=== PATIENT | female | born 1960 | race Caucasian/White ===

== ENCOUNTER → 2017-01-05 | Outpatient (CLI) | payer BC ==
[~2017-01-05] MED LIST: ACET-1256 PO; ALBU1AER9 PO; AMLO-110 PO; ASPI81TA28 PO; AZITTAB PO; BENZ100C84 PO; CHERATUSSIN AC PO; CHOL1CAP57 PO; CYAN100T6 PO; FLUO20CA37 PO; FLX10 PO; HYDR-5688 PO; IBUP-1050 PO; LISI-526 PO; MULT-506 PO; OMEG10007 PO; PSEUCAP67 PO; SUMA50TA15 PO
[2017-01-05 16:49] LABS: URINE APPEARANCE CLEAR (CLEAR); URINE BILIRUBIN NEG (NEG); URINE COLOR YELLOW; URINE NITRITE NEG (NEG); URINE SPECIFIC GRAVITY 1.012 (1.000-1.030); UROBILINOGEN NEG (NEG)
[2017-01-05 17:02] LABS: MANUAL MICROSCOPIC REQUIRED? NO; REVIEW REQ? NO
== END | disposition home or self-care (01) ==
LOC: C.LAB1850 15:33
PROVIDERS: ATTEND Obstetrics & Gynecology
DX: R31.29 Other microscopic hematuria (principal)

== ENCOUNTER 2017-01-15 17:37 | Emergency (ER) | payer BC ==
[~2017-01-15] VITALS: Ht 154.9 cm; Wt 63.3 kg
[~2017-01-15 17:37] MED LIST changes: -ACET-1256 PO; -LISI-526 PO
[2017-01-15 17:41] VITALS: TEMP 37.4; Ht 154.9 cm; Wt 63.3 kg
--- NOTE | 2017-01-15 18:00 | EMERGENCY ROOM VISIT NOTE ---
History Report prepared by Santos: Shree Maya Under the Supervision of: Dr. Kishan Bond M.D. First contact with patient: 17:57 Chief Complaint: HEADACHE Stated Complaint: HEADACHE,THROAT HURTS History of Present Illness The patient is a 56 year old female who presents to the Emergency Room with complaints of an intermittent headache beginning three weeks prior to arrival. She currently rates her discomfort as a 9/10 in severity. The patient associates a sore throat, jaw pain, neck pain, cough, fever, and chills with today's symptoms. She states her symptoms have worsened over the past three days. The patient notes she has experienced headaches in the past but not like her symptoms today. 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 Review of Systems See HPI for pertinent positives & negatives. A total of 10 systems reviewed and were otherwise negative. Past Medical & Surgical Medical Problems: (1) Acute Pancreatitis (2) Cystic Kidney Disease, Unspecified (3) Depressive Disorder Nec (4) Diverticulosis Colon (W/O Ment Of Hemorrhage) (5) Esophageal Reflux (6) Hypertension Nos Family History Diabetes mellitus FHx: heart disease Hypertension Social History Smoking Status: Never Smoker Alcohol Use: none Marital Status: Housing Status: lives with family Occupation Status: employed Current/Historical Medications Scheduled Amlodipine (Norvasc), 5 MG PO DAILY Aspirin (Aspirin Ec), 81 MG PO QAM Cholecalciferol (Vitamin D3), 1,000 UNITS PO QAM Cyanocobalamin (Vitamin B12 100 Mcg), 100 MCG PO QAM Fish Oil (Jackson-3), 2 TAB PO QAM Fluoxetine Hcl (Prozac), 40 MG PO HS Ibuprofen (Advil), 200-600 MG PO Q4H Lisinopril (Prinivil), 30 MG PO DAILY Scheduled PRN Acetaminophen (Tylenol), 500 MG PO DIRECTED PRN for Pain Hydrocodone/Acetaminophen 5MG/325MG ([place] 5MG/325MG), 1 TABLET PO Q4H PRN for RN Sumatriptan Succinate (Imitrex), 50 MG PO PRN PRN for Headache Allergies Coded Allergies: Codeine (Verified Allergy, Mild, STOMACH PAIN, 01/15/17) Statins (Verified Allergy, Mild, TIRED, WHOLE BODY ACHES, 01/15/17) Clarithromycin (Verified Allergy, Unknown, METAL TASTE IN MOUTH, 01/15/17) Doxycycline (Verified Allergy, Unknown, UNKNOWN, 01/15/17) Sulfa Antibiotics (Verified Adverse Reaction, Intermediate, GI UPSET, 01/15) Physical Exam Vital Signs Date Time Temp Pulse Resp B/P Pulse Ox O2 Delivery O2 Flow Rate FiO2 01/15/17 19:55 104 16 158/101 96 01/15/17 19:12 100 16 174/104 94 Room Air 01/15/17 17:41 37.4 119 20 178/103 95 Room Air Physical Exam CONSTITUTIONAL: Mild distress. Upper respiratory congestion. HEENT: No icterus, moist mucous membranes. TMs normal. No meningismus. NECK: No meningismus, trachea is midline. CARDIOVASCULAR: Regular rate, normal perfusion RESPIRATORY: Unlabored breathing. Clear to auscultation. GASTROINTESTINAL: Non-tender GENITOURINARY: No flank tenderness MUSCULOSKELETAL: Full range of motion NEUROLOGIC: No acute gross focal deficits. PSYCHIATRIC: Normal affect SKIN: Normal for ethnicity. Medical Decision & Procedures ER Provider Diagnostic Interpretation: CT results as stated below per my review and radiologist interpretation. SINUS CT CT DOSE: HISTORY: URI, severe ALEJO TECHNIQUE: Multiaxial CT images of the paranasal sinuses were performed and reformatted in the coronal plane without the use of contrast. COMPARISON: None. FINDINGS: There is a hypoplastic right frontal sinus. The frontal sinuses, ethmoid air cells, sphenoid sinuses, and bilateral maxillary antra are clear. The mastoid air cells are clear. The bilateral ostiomeatal units are patent. Mild left nasal septal deviation. No fluid levels within the paranasal sinuses. Small amount of bubbly secretions at the nasopharynx. The orbits are unremarkable. IMPRESSION: The paranasal sinuses and mastoid air cells are clear. Small amount of bubbly secretions at the nasopharynx. Electronically signed by: Russel Kaiser M.D. 01/15/2017 6:[address] CT DOSE: HISTORY: Severe headache. TECHNIQUE: Multiaxial CT images of the head were performed without the use of intravenous contrast. Automated exposure control was utilized for this study. Comparison: Head CT 02/28/2012. Findings: The paranasal sinuses and mastoid air cells are clear. The calvarium and skull base are intact. The ventricles and sulci are within normal limits. There is no mass, hematoma, midline shift, or acute infarct. Mild periventricular matter hypodensity is nonspecific but favors microvascular ischemic change. This remains unchanged compared to the prior study. Impression: No significant change compared to the prior study. No acute intracranial abnormality. Electronically signed by: Russel Kaiser M.D. 01/15/2017 6:49 PM Laboratory Results 01/15/17 18:19 Red Blood Count 4.71, Mean Corpuscular Volume 85.8, Mean Corpuscular Hemoglobin 28.9, Mean Corpuscular Hemoglobin Concent 33.7, Mean Platelet Volume 8.8, Neutrophils (%) (Auto) 87.4, Lymphocytes (%) (Auto) 6.2, Monocytes (%) (Auto) 5.6, Eosinophils (%) (Auto) 0.2, Basophils (%) (Auto) 0.2, Neutrophils # (Auto) 10.83, Lymphocytes # (Auto) 0.77, Monocytes # (Auto) 0.70, Eosinophils # (Auto) 0.02, Basophils # (Auto) 0.02 01/15/17 18:19 Test 01/15/17 18:19 01/15/17 18:20 White Blood Count 12.39 K/uL (4.8-10.8) Red Blood Count 4.71 M/uL (4.2-5.4) Hemoglobin 13.6 g/dL (12.0-16.0) Hematocrit 40.4 % (37-47) Mean Corpuscular Volume 85.8 fL (80-100) Mean Corpuscular Hemoglobin 28.9 pg (25-34) Mean Corpuscular Hemoglobin Concent 33.7 g/dl (32-36) Platelet Count 239 K/uL (130-400) Mean Platelet Volume 8.8 fL (7.4-10.4) Neutrophils (%) (Auto) 87.4 % Lymphocytes (%) (Auto) 6.2 % Monocytes (%) (Auto) 5.6 % Eosinophils (%) (Auto) 0.2 % Basophils (%) (Auto) 0.2 % Neutrophils # (Auto) 10.83 K/uL (1.4-6.5) Lymphocytes # (Auto) 0.77 K/uL (1.2-3.4) Monocytes # (Auto) 0.70 K/uL (0.11-0.59) Eosinophils # (Auto) 0.02 K/uL (0-0.5) Basophils # (Auto) 0.02 K/uL (0-0.2) RDW Standard Deviation 41.9 fL (36.4-46.3) RDW Coefficient of Variation 13.3 % (11.5-14.5) Immature Granulocyte % (Auto) 0.4 % Immature Granulocyte # (Auto) 0.05 K/uL (0.00-0.02) Anion Gap 12.0 mmol/L (3-11) Est Creatinine Clear Calc Drug Dose 54.7 ml/min Estimated GFR () 74.4 Estimated GFR (Non- 64.2 BUN/Creatinine Ratio 15.2 (10-20) Calcium Level 8.9 mg/dl (8.5-10.1) Total Bilirubin 0.4 mg/dl (0.2-1) Aspartate Amino Transf (AST/SGOT) 20 U/L (15-37) Alanine Aminotransferase (ALT/SGPT) 39 U/L (12-78) Alkaline Phosphatase 60 U/L (45-117) Total Protein 7.4 gm/dl (6.4-8.2) Albumin 3.5 gm/dl (3.4-5.0) Globulin 3.9 gm/dl (2.5-4.0) Albumin/Globulin Ratio 0.9 (0.9-2) Influenza Type A Antigen Neg for Influ A (NEG) Influenza Type B Antigen Neg for Influ B (NEG) Labs reviewed by ED physician. Medications Administered Medications (Trade) Dose Ordered Sig/Mauro Route Start Time Stop Time Status Last Admin Dose Admin Acetaminophen (Tylenol Tab) 1,000 mg NOW STAT PO 01/15/17 18:06 01/15/17 18:10 DC 01/15/17 18:28 1,000 MG Ibuprofen (Advil Tab) 400 mg NOW STAT PO 01/15/17 18:06 01/15/17 18:10 DC 01/15/17 18:27 400 MG Pseudoephedrine HCl (Sudafed Tab) 60 mg NOW STAT PO 01/15/17 18:06 01/15/17 18:10 DC 01/15/17 18:27 60 MG Oxymetazoline HCl (Afrin 0.05% Nasal [place]) 2 sprays NOW ONCE NA 01/15/17 18:15 01/15/17 18:17 DC 01/15/17 18:28 2 SPRAYS Diphenhydramine HCl 25 mg 25 mg NOW STAT IV 01/15/17 18:54 01/15/17 18:55 DC 01/15/17 19:10 25 MG Promethazine HCl/ Sodium Chloride (Phenergan Inj/ Nss 50ml) 51 ml @ 204 mls/hr NOW STAT IV 01/15/17 18:54 01/15/17 19:08 DC 01/15/17 19:10 204 MLS/HR ED Course 180: Past medical records reviewed. The patient was evaluated in room B6. A complete history and physical examination was performed. 180: Ordered Sudafed Tab 60 mg PO, Advil Tab 400 mg PO, Tylenol Tab 1,000 mg PO. 1814: Ordered Oxymetazoline HCl 2 sprays NA. 1850: Reevaluated the patient at this time, and she is experiencing continued subjective pain without objective findings. She would like something stronger for her discomfort. 1853: Ordered Promethazine HCl 25 mg/Sodium Chloride 51 ml @ 204 mls/hr IV, Benadryl Inj 25 mg IV. 5: Upon reexamination the patient is doing well. I discussed results and treatment plan with the patient. She verbalizes agreement and understanding. The patient is ready for discharge. Medical Decision Differential diagnoses include but are not limited to; upper respiratory infection, secondary bacterial sinusitis, intracranial bleed. 56-year-old presented to the emergency department with her for evaluation of upper respiratory symptoms as well as gradual onset of moderate to severe headache without focal neurologic complaints. Given Tylenol, Motrin and Phenergan Benadryl for persistent pain. CT examination labs negative. Patient advised upper respiratory symptoms and asked to leave 7-10 days before and initiating [id number] prescription for amoxicillin. She understands take Tylenol Motrin every 6 hours as needed for pain and return for any worsening worrisome symptoms. [place] Drug Monitoring Program Search Results: patient reviewed within database, see additional documentation Drug Monitoring Findings: The patient had two prescriptions for benzodiazepines noted over the past six months. Impression Primary Impression: Sinusitis Scribe Attestation The scribe's documentation has been prepared under my direction and personally reviewed by me in its entirety. I confirm that the note above accurately reflects all work, treatment, procedures, and medical decision making performed by me. Departure Information Dispostion Home / Self-Care Referrals Lawrence Ly M.D. (PCP) Forms HOME CARE DOCUMENTATION FORM, IMPORTANT VISIT INFORMATION Patient Instructions ED URI Viral, My [facility], Sinusitis Acute Additional Instructions For fevers, aches or pains: Motrin 600mg & Tylenol 650mg every 6 hours For congestion: Pseudoephedrine and Afrin Nasal MIST. Wait 10 days, if symptoms don't start to improve, take: Rx: Amoxicillin
[2017-01-15] MEDS ORDERED: IBUPROFEN 200 MG TAB PO STA (18:06)
[2017-01-15] MEDS ORDERED: PSEUDOEPHEDRINE HCL 30 MG TAB PO STA (18:06)
[2017-01-15] MEDS ORDERED: ACETAMINOPHEN 500 MG TAB PO STA (18:06)
[2017-01-15] MEDS ORDERED: OXYMETAZOLINE HCL 0.05% NA SPR 15 ML BTL ONE (18:15)
[2017-01-15] MEDS ORDERED: LISI-526 PO (18:20)
[2017-01-15] MEDS ORDERED: ACET-1256 PO (18:20)
[2017-01-15 18:31] LABS: BASO % 0.2 %; BASO ABS # 0.02 K/uL (0-0.2); COMPLETE YES; EOS % 0.2 %; HEMATOCRIT 40.4 % (37-47); IG% 0.4 %; LYMPH % 6.2 %; LYMPH ABS # 0.77 K/uL (1.2-3.4); MEAN CELL VOLUME 85.8 fL (80-100); MEAN CORPUSCULAR HEMOGLOBIN 28.9 pg (25-34); MEAN CORPUSCULAR HGB CONC 33.7 g/dl (32-36); MEAN PLATELET VOLUME 8.8 fL (7.4-10.4); MONO % 5.6 %; NEUT % 87.4 %; PLATELET COUNT 239 K/uL (130-400); RED BLOOD COUNT 4.71 M/uL (4.2-5.4); WHITE BLOOD COUNT 12.39 K/uL (4.8-10.8)
[2017-01-15 18:48] LABS: BUN/CREATININE RATIO 15.2 (10-20); CALCIUM 8.9 mg/dl (8.5-10.1); CREATININE 0.99 mg/dl (0.60-1.20); POTASSIUM 3.5 mmol/L (3.5-5.1)
--- NOTE | 2017-01-15 18:50 | DIAGNOSTIC IMAGING REPORT ---
HEAD CT NONCONTRAST CT DOSE: HISTORY: Severe headache. TECHNIQUE: Multiaxial CT images of the head were performed without the use of intravenous contrast. Automated exposure control was utilized for this study. Comparison: Head CT 02/28/2012. Findings: The paranasal sinuses and mastoid air cells are clear. The calvarium and skull base are intact. The ventricles and sulci are within normal limits. There is no mass, hematoma, midline shift, or acute infarct. Mild periventricular matter hypodensity is nonspecific but favors microvascular ischemic change. This remains unchanged compared to the prior study. Impression: No significant change compared to the prior study. No acute intracranial abnormality. Electronically signed by: Russel Kaiser M.D. 01/15/2017 6:49 PM Dictated Date/Time: 01/15/2017 6:46 PM
[2017-01-15 18:51] LABS: ALB/GLOB RATIO 0.9 (0.9-2)
--- NOTE | 2017-01-15 18:53 | DIAGNOSTIC IMAGING REPORT ---
SINUS CT CT DOSE: HISTORY: URI, severe ALEJO TECHNIQUE: Multiaxial CT images of the paranasal sinuses were performed and reformatted in the coronal plane without the use of contrast. COMPARISON: None. FINDINGS: There is a hypoplastic right frontal sinus. The frontal sinuses, ethmoid air cells, sphenoid sinuses, and bilateral maxillary antra are clear. The mastoid air cells are clear. The bilateral ostiomeatal units are patent. Mild left nasal septal deviation. No fluid levels within the paranasal sinuses. Small amount of bubbly secretions at the nasopharynx. The orbits are unremarkable. IMPRESSION: The paranasal sinuses and mastoid air cells are clear. Small amount of bubbly secretions at the nasopharynx. Electronically signed by: Russel Kaiser M.D. 01/15/2017 6:52 PM Dictated Date/Time: 01/15/2017 6:49 PM
[2017-01-15] MEDS ORDERED: PROMETHAZINE HCL INJ 25 MG in SODIUM CHLORIDE 0.9% 50ML 50 ML IV STA (18:54)
[2017-01-15] MEDS ORDERED: DiphenhydrAMINE HCL 50 MG/ML VIAL IV STA (18:54)
[2017-01-15 19:55] VITALS: BP 158/101; PULSE 104; O2SAT 96
== END 2017-01-15 19:55 | disposition home or self-care (01) ==
LOC: C.EDB 17:38
DX: J32.9 Chronic sinusitis, unspecified (principal); F32.9 Major depressive disorder, single episode, unspecified; K21.9 Gastro-esophageal reflux disease without esophagitis; I10 Essential (primary) hypertension; Q61.9 Cystic kidney disease, unspecified; Z83.3 Family history of diabetes mellitus; Z82.49 Family history of ischemic heart disease and other diseases of the circulatory system

== ENCOUNTER → 2017-04-11 | Outpatient (CLI) | payer BC ==
[~2017-04-11] MED LIST changes: +ACET-1256 PO; -ALBU1AER9 PO; -AZITTAB PO; -BENZ100C84 PO; -CHERATUSSIN AC PO; -FLX10 PO; +LISI-526 PO; -MULT-506 PO; -PSEUCAP67 PO
--- NOTE | 2017-04-11 16:34 | MAMMOGRAPHY REPORT ---
BILATERAL DIGITAL SCREENING MAMMOGRAM TOMOSYNTHESIS WITH CAD: 04/11/2017 CLINICAL HISTORY: Routine screening examination. TECHNIQUE: Breast tomosynthesis in addition to standard 2D mammography was performed. Current study was also evaluated with a Computer Aided Detection (CAD) system. COMPARISON: Comparison is made to exams dated: 05/23/2014 mammogram, 04/17/2013 mammogram, 03/25/2011 mammogram, 03/06/2010 mammogram - [facility], 03/05/2009, and 02/05/2008. BREAST COMPOSITION: There are scattered areas of fibroglandular density in both breasts. FINDINGS: There are stable intramammary lymph nodes in the right upper outer quadrant. No new suspi cious mass, architectural distortion or cluster of microcalcifications is seen. IMPRESSION: ACR BI-RADS CATEGORY 1: NEGATIVE There is no mammographic evidence of malignancy. A 1 year screening mammogram is recommended. The p atient will receive written notification of the results. Approximately 10% of breast cancers are not detected with mammography. A negative mammographic repor t should not delay biopsy if a clinically suggestive mass is present. Brandi Ambriz M.D. ay/:04/11/2017 15:57:34 Automation Analyst: Rola NGUYEN(Delilah)(Robyn), [facility] letter sent: Normal 1/2 BI-RADS Code: ACR BI-RADS Category 1: Negative
== END | disposition home or self-care (01) ==
LOC: C.MAMM 14:55
PROVIDERS: ATTEND Internal Medicine
DX: Z12.31 Encounter for screening mammogram for malignant neoplasm of breast (principal)

== ENCOUNTER → 2017-05-05 | Outpatient (CLI) | payer BC ==
[2017-05-05 18:21] LABS: URINE APPEARANCE CLEAR (CLEAR); URINE BILIRUBIN NEG (NEG); URINE COLOR YELLOW; URINE EPITHELIAL CELL AUTO 0-5 /lpf (0-5); URINE NITRITE NEG (NEG); URINE PH 6.5 (4.5-7.5); URINE SPECIFIC GRAVITY 1.012 (1.000-1.030); UROBILINOGEN NEG (NEG)
[2017-05-05 18:22] LABS: MANUAL MICROSCOPIC REQUIRED? NO; REVIEW REQ? NO
== END | disposition home or self-care (01) ==
LOC: C.LABSPEC 17:51
PROVIDERS: ATTEND Physician Assistant
DX: R35.0 Frequency of micturition (principal); Z87.42 Personal history of other diseases of the female genital tract

== ENCOUNTER → 2017-05-05 | Outpatient (CLI) | payer BC | END | disposition home or self-care (01) | LOC: C.PAPS 09:41 | PROVIDERS: ATTEND Physician Assistant | DX: Z01.419 Encounter for gynecological examination (general) (routine) without abnormal findings (principal) ==

== ENCOUNTER 2017-12-11 11:34 | Emergency (ER) | payer BC, OTHER ==
[~2017-12-11] VITALS: Ht 154.9 cm; Wt 62.0 kg
[2017-12-11 11:45] VITALS: Ht 154.9 cm; Wt 62.0 kg
[2017-12-11] MEDS ORDERED: OSELTAMIVIR PHOSPHATE 75 MG CAP PO STA (12:05)
[2017-12-11] MEDS ORDERED: PROCHLORPERAZINE 5 MG/ML 2 ML VIAL IV STA (12:05)
[2017-12-11] MEDS ORDERED: SODIUM CHLORIDE 0.9% 500ML 500 ML IV STA (12:05)
[2017-12-11] MEDS ORDERED: DiphenhydrAMINE HCL 50 MG/ML VIAL IV STA (12:05)
[2017-12-11] MEDS ORDERED: KETOROLAC TROMETHAMINE 30 MG/ML VIAL IV STA (12:05)
--- NOTE | 2017-12-11 12:09 | EMERGENCY ROOM VISIT NOTE ---
History Report prepared by Bhavinibronny: Cristofer Yusuf Under the Supervision of: Dr. Tarik Land M.D. First contact with patient: 12:00 Chief Complaint: HEADACHE Stated Complaint: SEVERE HEADACHE,DIZZINESS,EAR PAIN History of Present Illness The patient is a 57 year old female who presents to the Emergency Room with complaints of persistent fever AUTHOR. She notes severe pain behind both ears. She notes a headache, fevers, dizziness, and a cough. She currently rates her pain a 10/10 in severity. She denies neck pain or abdominal pain. She denies having a headache with similar symptoms in the past. The patient has not received the flu shot this season. She notes that she has taken Tylenol last night with no relief. Per , she has taken two Pedialyte this morning. Source of History: patient, spouse/significant other Onset: AUTHOR Position: other (global ) Symptom Intensity: 10/10 Quality: other (fever) Timing: other (persistent) Associated Symptoms: + headache, + cough, + neck pain, No abdominal pain Note: She notes dizziness. Review of Systems See HPI for pertinent positives & negatives. A total of 10 systems reviewed and were otherwise negative. Past Medical & Surgical Medical Problems: (1) Acute Pancreatitis (2) Cystic Kidney Disease, Unspecified (3) Depressive Disorder Nec (4) Diverticulosis Colon (W/O Ment Of Hemorrhage) (5) Esophageal Reflux (6) Hypertension Nos Family History Diabetes mellitus FHx: heart disease Hypertension Social History Smoking Status: Never Smoker Smokeless Tobacco Use: No Alcohol Use: none Drug Use: none Marital Status: Housing Status: lives with family Occupation Status: employed Current/Historical Medications Scheduled Cyanocobalamin (Vitamin B12 100 Mcg), 100 MCG PO QAM Fluoxetine Hcl (Prozac), 40 MG PO HS Lisinopril (Prinivil), 30 MG PO DAILY Oseltamivir Phosphate (Tamiflu), 75 MG PO BID Scheduled PRN Sumatriptan Succinate (Imitrex), 50 MG PO PRN PRN for Headache Allergies Coded Allergies: Codeine (Verified Allergy, Mild, STOMACH PAIN, 12/11/17) Statins (Verified Allergy, Mild, TIRED, WHOLE BODY ACHES, 12/11/17) Clarithromycin (Verified Allergy, Unknown, METAL TASTE IN MOUTH, 12/11/17) Doxycycline (Verified Allergy, Unknown, UNKNOWN, 12/11/17) Sulfa Antibiotics (Verified Adverse Reaction, Intermediate, GI UPSET, 12/11) Physical Exam Vital Signs Date Time Temp Pulse Resp B/P (MAP) Pulse Ox O2 Delivery O2 Flow Rate FiO2 12/11/17 14:19 38.0 111 24 119/73 92 12/11/17 14:04 38.0 111 24 92 12/11/17 14:00 119/73 12/11/17 13:34 99 25 91 12/11/17 13:30 112/63 12/11/17 13:04 100 20 95 12/11/17 13:00 122/69 12/11/17 12:58 100 12/11/17 12:56 145/80 12/11/17 12:39 94 Room Air 12/11/17 11:45 39.4 104 18 131/81 94 Physical Exam GENERAL: Patient is a healthy-appearing well-nourished female. HEAD: Normocephalic atraumatic. No evidence of meningitis or encephalitis on exam. EYES: Ocular movements intact pupils equal and react to light OROPHARYNX mucous membranes are moist no exudates present no erythema or edema present NECK: Supple no nuchal rigidity CHEST: Good equal expansion LUNGS: Clear and equal to auscultation CARDIAC: Normal S1 and S2 ABDOMEN: Soft nontender no guarding BACK: No CVA tenderness EXTREMITIES: No pain upon palpation normal muscle strength in all groups no clubbing cyanosis or edema NEURO: Patient is following commands and answering questions appropriately. Alert and oriented x3 Cranial Nerves 2-12 grossly intact Medical Decision & Procedures ER Provider Diagnostic Interpretation: Radiology results as stated below per my review and radiologist interpretation: CHEST ONE VIEW PORTABLE HISTORY: Short of breath. COMPARISON: Chest 05/07/2016. FINDINGS: The lungs are clear. Cardiac silhouette is normal in size. No pleural effusions. No pneumothorax. IMPRESSION: No acute process. Electronically signed by: Russel Kaiser M.D. 12/11/2017 12:22 PM Dictated Date/Time: 12/11/2017 12:[address] CT DOSE: 740.19 mGy.cm HISTORY: Pt c/o headache TECHNIQUE: Multiaxial CT images of the head were performed without the use of intravenous contrast. Automated exposure control was utilized for this study. A dose lowering technique was utilized adhering to the principles of ALARA. Comparison: 01/15/2017 Findings: The paranasal sinuses and mastoid air cells are clear. The calvarium and skull base are intact. There is no mass, hematoma, midline shift, acute infarct. White matter hypodensity is nonspecific but suggestive of microvascular ischemic change. The ventricles and sulci demonstrate mild age-related involutional changes. Impression: No significant change compared to the prior study. No acute intracranial abnormality. Electronically signed by: Russel Kaiser M.D. 12/11/2017 1:01 PM Dictated Date/Time: 12/11/2017 12:57 PM Laboratory Results 12/11/17 12:11 Red Blood Count 4.34, Mean Corpuscular Volume 88.7, Mean Corpuscular Hemoglobin 29.0, Mean Corpuscular Hemoglobin Concent 32.7, Mean Platelet Volume 9.3, Neutrophils (%) (Auto) 76.7, Lymphocytes (%) (Auto) 6.8, Monocytes (%) (Auto) 14.7, Eosinophils (%) (Auto) 0.6, Basophils (%) (Auto) 0.6, Neutrophils # (Auto ) 3.98, Lymphocytes # (Auto) 0.35, Monocytes # (Auto) 0.76, Eosinophils # (Auto ) 0.03, Basophils # (Auto) 0.03 12/11/17 12:11 Test 12/11/17 12:11 12/11/17 12:30 White Blood Count 5.18 K/uL (4.8-10.8) Red Blood Count 4.34 M/uL (4.2-5.4) Hemoglobin 12.6 g/dL (12.0-16.0) Hematocrit 38.5 % (37-47) Mean Corpuscular Volume 88.7 fL (80-100) Mean Corpuscular Hemoglobin 29.0 pg (25-34) Mean Corpuscular Hemoglobin Concent 32.7 g/dl (32-36) Platelet Count 271 K/uL (130-400) Mean Platelet Volume 9.3 fL (7.4-10.4) Neutrophils (%) (Auto) 76.7 % Lymphocytes (%) (Auto) 6.8 % Monocytes (%) (Auto) 14.7 % Eosinophils (%) (Auto) 0.6 % Basophils (%) (Auto) 0.6 % Neutrophils # (Auto) 3.98 K/uL (1.4-6.5) Lymphocytes # (Auto) 0.35 K/uL (1.2-3.4) Monocytes # (Auto) 0.76 K/uL (0.11-0.59) Eosinophils # (Auto) 0.03 K/uL (0-0.5) Basophils # (Auto) 0.03 K/uL (0-0.2) RDW Standard Deviation 44.9 fL (36.4-46.3) RDW Coefficient of Variation 13.7 % (11.5-14.5) Immature Granulocyte % (Auto) 0.6 % Immature Granulocyte # (Auto) 0.03 K/uL (0.00-0.02) Anion Gap 9.0 mmol/L (3-11) Est Creatinine Clear Calc Drug Dose 50.5 ml/min Estimated GFR () 68.8 Estimated GFR (Non- 59.3 BUN/Creatinine Ratio 12.7 (10-20) Calcium Level 8.9 mg/dl (8.5-10.1) Total Bilirubin 0.4 mg/dl (0.2-1) Direct Bilirubin 0.1 mg/dl (0-0.2) Aspartate Amino Transf (AST/SGOT) 31 U/L (15-37) Alanine Aminotransferase (ALT/SGPT) 36 U/L (12-78) Alkaline Phosphatase 57 U/L (45-117) Total Protein 8.0 gm/dl (6.4-8.2) Albumin 3.8 gm/dl (3.4-5.0) Influenza Type A Antigen POS for Influ A (NEG) Influenza Type B Antigen Neg for Influ B (NEG) Labs reviewed by ED physician. Medications Administered Medications (Trade) Dose Ordered Sig/Mauro Route Start Time Stop Time Status Last Admin Dose Admin Ketorolac Tromethamine (Toradol Inj) 30 mg NOW STAT IV 12/11/17 12:05 12/11/17 12:09 DC 12/11/17 12:25 30 MG Prochlorperazine Edisylate (Compazine Inj) 10 mg NOW STAT IV 12/11/17 12:05 12/11/17 12:09 DC 12/11/17 12:25 10 MG Diphenhydramine HCl (Benadryl Inj) 50 mg NOW STAT IV 12/11/17 12:05 12/11/17 12:09 DC 12/11/17 12:25 50 MG Oseltamivir Phosphate (Tamiflu Cap) 75 mg NOW STAT PO 12/11/17 12:05 12/11/17 12:09 DC 12/11/17 12:26 75 MG Sodium Chloride 500 ml @ 999 mls/hr Q31M STAT IV 12/11/17 12:05 12/11/17 12:35 DC 12/11/17 12:05 999 MLS/HR Potassium Chloride (Niki Ciel Elix) 40 meq NOW STAT PO 12/11/17 12:44 12/11/17 12:45 DC 12/11/17 12:50 40 MEQ Acetaminophen (Tylenol Tab) 1,000 mg NOW STAT PO 12/11/17 13:18 12/11/17 13:19 DC 12/11/17 14:10 1,000 MG ED Course 1200: Past medical records reviewed. The patient was evaluated in room B12B. A complete history and physical examination was performed. 1205: Ordered Sodium Chloride 500 ml @ 999 mls/hr, Tamiflu 75 mg PO, Benadryl 50 mg IV, Compazine 10 mg IV, and Toradol 30 mg IV 1305: I reassessed the patient at this time. She is feeling better and resting comfortably. 1244: Ordered Potassium Chloride 40 meq PO 1333: I reassessed the patient at this time. She is feeling better and resting comfortably. I discussed the results and treatment plan with the patient. I answered all pertaining questions that she had. She expressed understanding and verbalized agreement. The patient will be discharged home. Medical Decision Prior records/ancillary studies reviewed. Triage Nursing notes reviewed. Additional history obtained from . The patient's history was concerning for fever. Differential diagnosis: Etiologies such as viral syndrome, otitis, pharyngitis, pneumonia, influenza, meningitis, urinary tract infection, sepsis, bacteremia, as well as others were entertained. This is a 57-year-old female who presents emergency department complaining of headache. She has no evidence of meningitis encephalitis on examination. In addition the patient is also positive for the flu. She does not have an elevation in her white blood count cell count. An IV was established, patient given Toradol, Compazine, Benadryl. Repeat examination revealed much improvement patient's symptoms. Based on these findings I felt that the patient is well enough to be discharged home for follow-up with her primary care physician. Patient was also given Tylenol and started on Tamiflu. Patient will return she develops weakness or her fevers or out of control. Medication Reconcilliation Current Medication List: was personally reviewed by me Blood Pressure Screening Patient's blood pressure: Elevated blood pressure Blood pressure disposition: Referred to PCP Impression Primary Impression: Influenza A Scribe Attestation The scribe's documentation has been prepared under my direction and personally reviewed by me in its entirety. I confirm that the note above accurately reflects all work, treatment, procedures, and medical decision making performed by me. Departure Information Dispostion Home / Self-Care Prescriptions Oseltamivir Phosphate (Tamiflu) 75 Mg Cap 75 MG PO BID for 5 Days, #10 CAP Prov: Tarik Land MD 12/11/17 Referrals Lawrence Ly M.D. (PCP) Forms HOME CARE DOCUMENTATION FORM, IMPORTANT VISIT INFORMATION, School Instructions, Work Instructions Patient Instructions ED Flu, Flu, My [facility] Additional Instructions Increase fluids next 48 hours Take 600 mg Ibuprofen every 6 hours Take 1000 mg Tylenol every 6 hours You have been examined and treated today on an emergency basis only. This is not a substitute for, or an effort to provide, complete comprehensive medical care. It is impossible to recognize and treat all injuries or illnesses in a single emergency department visit. It is therefore important that you follow up closely with Dr Ly. Call as soon as possible for an appointment. Thank you for your time and consideration. I look forward to speaking with you again soon. Please don't hesitate to call us if you have any questions.
--- NOTE | 2017-12-11 12:23 | DIAGNOSTIC IMAGING REPORT ---
CHEST ONE VIEW PORTABLE HISTORY: Short of breath. COMPARISON: Chest 05/07/2016. FINDINGS: The lungs are clear. Cardiac silhouette is normal in size. No pleural effusions. No pneumothorax. IMPRESSION: No acute process. Electronically signed by: Russel Kaiser M.D. 12/11/2017 12:22 PM Dictated Date/Time: 12/11/2017 12:21 PM
[2017-12-11 12:27] LABS: BASO % 0.6 %; BASO ABS # 0.03 K/uL (0-0.2); EOS % 0.6 %; EOS ABS # 0.03 K/uL (0-0.5); HEMATOCRIT 38.5 % (37-47); HEMOGLOBIN 12.6 g/dL (12.0-16.0); IG# 0.03 K/uL (0.00-0.02); LYMPH % 6.8 %; LYMPH ABS # 0.35 K/uL (1.2-3.4); MEAN CELL VOLUME 88.7 fL (80-100); MEAN CORPUSCULAR HGB CONC 32.7 g/dl (32-36); MEAN PLATELET VOLUME 9.3 fL (7.4-10.4); MONO % 14.7 %; MONO ABS # 0.76 K/uL (0.11-0.59); NEUT % 76.7 %; NEUT ABS # 3.98 K/uL (1.4-6.5); PLATELET COUNT 271 K/uL (130-400); RED CELL DISTRIBUTION WIDTH CV 13.7 % (11.5-14.5); RED CELL DISTRIBUTION WIDTH SD 44.9 fL (36.4-46.3); WHITE BLOOD COUNT 5.18 K/uL (4.8-10.8)
[2017-12-11 12:38] LABS: ALBUMIN 3.8 gm/dl (3.4-5.0); CALCIUM 8.9 mg/dl (8.5-10.1); CREATININE 1.05 mg/dl (0.60-1.20); POTASSIUM 3.2 mmol/L (3.5-5.1)
[2017-12-11 12:39] VITALS: O2SAT 94
[2017-12-11] MEDS ORDERED: POTASSIUM CHLORIDE 20 MEQ/15 ML UDC PO STA (12:44)
--- NOTE | 2017-12-11 13:03 | DIAGNOSTIC IMAGING REPORT ---
HEAD CT NONCONTRAST CT DOSE: 740.19 mGy.cm HISTORY: Pt c/o headache TECHNIQUE: Multiaxial CT images of the head were performed without the use of intravenous contrast. Automated exposure control was utilized for this study. A dose lowering technique was utilized adhering to the principles of ALARA. Comparison: 01/15/2017 Findings: The paranasal sinuses and mastoid air cells are clear. The calvarium and skull base are intact. There is no mass, hematoma, midline shift, acute infarct. White matter hypodensity is nonspecific but suggestive of microvascular ischemic change. The ventricles and sulci demonstrate mild age-related involutional changes. Impression: No significant change compared to the prior study. No acute intracranial abnormality. Electronically signed by: Russel Kaiser M.D. 12/11/2017 1:01 PM Dictated Date/Time: 12/11/2017 12:57 PM
[2017-12-11] MEDS ORDERED: ACETAMINOPHEN 500 MG TAB PO STA (13:18)
[2017-12-11 13:30] LABS: INFLUENZA B ANTIGEN Neg for Influ B (NEG)
[2017-12-11] MEDS ORDERED: OSEL75CA23 PO (13:33)
[2017-12-11 14:19] VITALS: BP 119/73; PULSE 111; TEMP 38; O2SAT 92
== END 2017-12-11 14:20 | disposition home or self-care (01) ==
LOC: C.EDB 11:35
DX: J09.X2 Influenza due to identified novel influenza A virus with other respiratory manifestations (principal); I10 Essential (primary) hypertension; Z83.3 Family history of diabetes mellitus; Z82.49 Family history of ischemic heart disease and other diseases of the circulatory system

== ENCOUNTER → 2018-04-12 | Outpatient (CLI) | payer OTHER ==
[~2018-04-12] MED LIST changes: -ACET-1256 PO; -AMLO-110 PO; -ASPI81TA28 PO; -CHOL1CAP57 PO; -HYDR-5688 PO; -IBUP-1050 PO; -OMEG10007 PO
--- NOTE | 2018-04-12 15:25 | MAMMOGRAPHY REPORT ---
BILATERAL DIGITAL SCREENING MAMMOGRAM TOMOSYNTHESIS WITH CAD: 04/12/2018 CLINICAL HISTORY: Routine screening. Patient has no complaints. TECHNIQUE: Breast tomosynthesis in addition to standard 2D mammography was performed. Current study was also evaluated with a Computer Aided Detection (CAD) system. COMPARISON: Comparison is made to exams dated: 04/11/2017 mammogram, 08/19/2015 mammogram, 05/23/2014 m ammogram, 04/17/2013 mammogram, 03/25/2011 mammogram, and 03/06/2010 mammogram - [facility] nter. BREAST COMPOSITION: There are scattered areas of fibroglandular density in both breasts. FINDINGS: The parenchymal pattern is similar to prior mammograms. There are a few benign coarse larry cifications in the breasts. Stable intramammary lymph nodes in the right upper outer quadrant. No d eveloping mass, architectural distortion or cluster of suspicious microcalcifications is seen in eith er breast. IMPRESSION: ACR BI-RADS CATEGORY 2: BENIGN There is no mammographic evidence of malignancy. A 1 year screening mammogram is recommended. The pa tient will receive written notification of the results. Approximately 10% of breast cancers are not detected with mammography. A negative mammographic report should not delay biopsy if a clinically suggestive mass is present. Brandi Ambriz M.D. ay/:04/12/2018 12:17:53 Senior Research Associate: Karie SCHRADER)(Robyn), [facility] letter sent: Normal 1/2 BI-RADS Code: ACR BI-RADS Category 2: Benign
== END | disposition home or self-care (01) ==
LOC: C.MAMM 11:00
PROVIDERS: ATTEND Internal Medicine
DX: Z12.31 Encounter for screening mammogram for malignant neoplasm of breast (principal)

== ENCOUNTER 2023-02-11 17:45 | Inpatient (IN) ==
--- NOTE | 2023-02-11 17:59 | ED Triage Note ---
Date of Service February 11, 2023 History of Present Illness This patient was briefly evaluated while in triage. An abbreviated physical exam was performed. This patient is a 62-year-old Female who presents to the ED for evaluation of chest pain. 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 Pain is in the center to left of her chest and her left arm feels somewhat numb. No cardiac history. Physical Exam VITALS: Vitals are noted on the nurse's note and reviewed by myself. GENERAL: This is a 62-year-old female, in no acute distress, nondiaphoretic, well-developed well-nourished. SKIN: The skin was without rashes. HEART: Regular rate and rhythm without murmurs gallops or rubs. LUNGS: Clear to auscultation bilaterally without wheezes, rales or rhonchi. NEURO: Patient was alert and oriented to person place and time. Initial orders for labs and / or imaging were placed and patient was placed in the waiting area until a bed is available. Please see further documentation for the full ED course. MDM / Impression Impression Impression: Precordial chest pain, Upper back pain
[2023-02-11 18:27] LABS: Basophils # (auto) 0.07 K/uL (0-0.2); Basophils % (auto) 0.8 %; Eosinophils # (auto) 0.21 K/uL (0-0.50); Eosinophils % (auto) 2.5 %; Hematocrit (blood only) 42.5 % (37.0-47.0); Hemoglobin 13.9 g/dl (12.0-16.0); Immature Granulocytes # (auto) 0.05 K/uL (0.01-0.20); Immature Granulocytes % (auto) 0.6 %; Lymphocytes # (auto) 2.58 K/uL (1.2-3.4); Lymphocytes % (auto) 31.2 %; Mean Corpuscular Hemoglobin 28.8 pg (25.0-34.0); Mean Corpuscular Hgb Conc 32.7 g/dL (32.0-36.0); Mean Platelet Volume 9.2 fL (9.4-12.4); Monocytes # (auto) 0.59 K/uL (0.11-0.59); Monocytes % (auto) 7.1 %; Neutrophils # (auto) 4.78 K/uL (1.40-6.50); Neutrophils % (auto) 57.8 %; Platelet Count 335 K/uL (130-400); RDW Coefficient of Variation 13.1 % (11.5-14.5); RDW Standard Deviation 42.3 fL (36.4-46.3); Red Blood Count 4.83 M/uL (4.20-5.40); White Blood Count 8.28 K/ul (4.8-10.8)
--- NOTE | 2023-02-11 18:43 | XRay Report ---
XR chest 1V portable HISTORY: Chest pain, nonspecific COMPARISON: Chest 12/11/2017. FINDINGS: The lungs are clear. Cardiac silhouette is normal in size. No pleural effusions. No pneumot horax. Prior cholecystectomy. Nodular density at the base of the left lower lobe is consistent with a nipple shadow. IMPRESSION: No acute process. ACT 112: Negative or not required by law. Electronically signed by: Russel Kaiser M.D. 02/11/2023 6:42 PM
[2023-02-11 18:46] LABS: Albumin Globulin Ratio 1.2 (0.9-2); Albumin Level 4.7 gm/dl (3.4-5.0); Bilirubin,Total 0.3 mg/dl (0.2-1.0); Calcium 10.2 mg/dl (8.5-10.1); Creatinine Clr Calc Pharmacy 44.7 ml/min; Est GFR (African American) 61.4 ml/min; Globulin 3.9 gm/dl (2.5-4.0); Potassium 3.9 mmol/L (3.5-5.1); Total Protein 8.6 gm/dl (6.0-8.3)
[2023-02-11] MEDS ORDERED: NITROGLYCERIN 2% OINTMENT 30GM TUBE EXT STA (21:08)
[2023-02-11] MEDS ORDERED: ONDANSETRON INJ 2 MG/ML 2 ML VIAL IV STA (21:08)
[2023-02-11] MEDS ORDERED: MoRPHine SULFATE 2 MG/ML CARP IV STA (21:08)
[2023-02-11] MEDS ORDERED: ASPIRIN CHEW 324 MG PO STA (21:08)
--- NOTE | 2023-02-11 21:15 | Emergency Department Note ---
Impression & Plan Precordial chest pain, Upper back pain ED Provider Note NAME: CHRISTINE CAIN AGE: 62 SEX: F : 1960 ARRIVES VIA: Walk-In INFORMANT: [Patient] ED PROVIDER(S): [Adam Aguirre MD] CHIEF COMPLAINT: Chest pain HISTORY OF PRESENT ILLNESS: The patient is a 62-year-old female who states that she was putting things on shelves about 5 hours ago when she developed central to left chest pain moving into her back and shoulder blades. The pain was fairly severe. She was not short of breath, no nausea or sweating. The patient states the pain is still present but less severe. The patient does not have any known coronary disease however, her family, including her brothers, have heart disease. She does not smoke, she does have high blood pressure. No high cholesterol, no diabetes. The patient denies injury to the chest wall, there has been no cough or congestion. No abdominal pain, no urinary complaints. PMHx/PSHx: See Below SOCIAL HISTORY: See Below. PHYSICAL EXAM: GENERAL: Patient is in no acute distress. HEENT: No acute trauma, normocephalic atraumatic, mucous membranes moist, no holden al congestion. NECK: No stridor, no adenopathy, no meningismus, trachea is midline. LUNGS: Clear to auscultation bilaterally, no wheeze, no rhonchi, breath sounds equal. Chest: Nontender chest wall. HEART: Without murmurs gallops or rubs, regular rate and rhythm. ABDOMEN: Soft, nontender, bowel sounds positive, no peritonitis. No tenderness to the epigastrium or right upper quadrant. EXTREMITIES: No cyanosis or edema, full range of motion of all the joints without pain or difficulty, no signs for acute trauma. NEUROLOGIC: Oriented x 3, no acute motor or sensory deficits, no focal weakness. SKIN: No rash, no jaundice, no diaphoresis. DIFFERENTIAL DIAGNOSIS: [place], musculoskeletal pain, PE, aortic dissection, reflux, pancreatitis, biliary colic, among others. EMERGENCY DEPARTMENT COURSE/PROCEDURES: Prior/Outside records reviewed: None. ECG per my interpretation: Indication was chest pain. The ECG shows a normal sinus rhythm with a rate of 85. There is no ST elevation, no PVCs. The QTc is 442 Continuous Cardiac Monitoring per my interpretation: An order was placed for continuous cardiac monitoring. The monitor shows a rate of 78 with normal sinus rhythm. MEDICAL DECISION MAKING: There is no leukocytosis or concerning anemia. There is a normal platelet count. No renal failure or significant electrolyte abnormality. No concerning liver enzyme elevation. No evidence for pancreatitis. COVID test returned negative. ECG showed a normal sinus rhythm, no ischemia. Cardiac enzyme testing x1 was not consistent with acute cardiac injury. Chest film did not show mediastinal widening, pneumonia or pneumothorax per my review. Chest CT did not show any evidence for aortic dissection, no evidence for pulmonary embolus. On exam, the patient did not have any discomfort with palpation of her chest wall. Patient presents with chest pain. She does have multiple cardiac risk factors. The patient received IV Zofran, nitroglycerin paste, IV morphine, she was given oral aspirin. Given her cardiac risk factors, given her description of discomfort, I do think a hospitalization is warranted. Further cardiac work-up is in order. The patient is aware of her findings. She understands the need for hospitalization. I did speak with case management, the on-call hospitalist was consulted. DISPOSITION: The patient's presentation and findings warrant a hospital stay. Past Med/Surg History Medical History Acid reflux FH: cholecystectomy History of arterial aneurysm History of hyperglycemia Hyperlipidemia Insomnia Left-sided epistaxis Migraine headache Surgical History H/O colonoscopy History of back surgery History of cholecystectomy Family History Father Diabetes Hypertension Malignant neoplasm of pancreas Myocardial infarction Mother Hypertension Myocardial infarction Unknown Arteriosclerotic cardiovascular disease (ASCVD) Ovarian cancer Colon cancer Grandfather (Maternal) Myocardial infarction Grandfather (Paternal) Myocardial infarction Grandmother (Maternal) Myocardial infarction Grandmother (Paternal) Myocardial infarction Other Heart disease No family history of adverse response to anesthesia No family history of allergies No family history of bleeding disorder Stroke Denies family history of Prostate cancer Breast cancer Cancer Asthma Social History Smoking Status: Never smoker Second Hand Exposure: No; Hx Alcohol Use: Yes Alcohol Intake Frequency Comment: Socially Hx Substance Use: No Preferred Language: Thai Communication Ability: Effective Visual Impairment: No Limitations Hearing Ability: Normal 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 Required: No Beliefs That Will Affect Care: None marital status: Current Living Situation: Significant Other current occupational status: employed 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 Feels Safe at Home: Yes Dental Care, Regularly: Yes Physical Activity Frequency: 1-2 Times per Week Seatbelt Use: always Sunscreen Use: Yes Assistive Devices: Contacts, Denture - Upper and Glasses Allergies Allergies Allergy/AdvReac Type Severity Reaction Status Date / Time doxycycline Allergy Unknown UNKNOWN Verified 02/11/23 21:29 codeine AdvReac Intermediate STOMACH Verified 02/11/23 21:29 PAIN Daftzpt-WDO-BfV Reductase AdvReac Intermediate TIRED, Verified 02/11/23 21:29 Inhibitor WHOLE BODY [Ztnkfrb-Kzo-Qwm Reductase ACHES Inhibitor] Sulfa (Sulfonamide AdvReac Intermediate GI UPSET Verified 02/11/23 21:29 Antibiotics) clarithromycin AdvReac Mild METAL Verified 02/11/23 21:29 TASTE IN MOUTH Home Meds Home Medications Medication Instructions Recorded Confirmed omega-3 fatty acids 1,000 mg 2,000 mg PO DAILY 05/01/19 02/11/23 capsule cyanocobalamin (vitamin B-12) 100 100 mcg PO DAILY 08/16/19 02/11/23 mcg tablet cyclobenzaprine 5 mg tablet 5 mg PO DAILY PRN MUSCLE SPASMS 02/11/23 02/11/23 mupirocin 2 % topical ointment 1 applic topical BID PRN NEEDED 02/11/23 02/11/23 trazodone 50 mg tablet 25 mg PO HS 02/11/23 02/11/23 Previous Rx's Medication Instructions Recorded cholecalciferol (vitamin D3) 25 1,000 units PO DAILY #30 caps 05/01/19 mcg (1,000 unit) capsule pantoprazole 40 mg tablet,delayed 40 mg PO DAILY PRN acid reflux #30 05/01/19 release tabs bupropion HCl 150 mg tablet,12 hr 150 mg PO BID #180 ea 03/02/22 sustained-release venlafaxine 75 mg capsule,extended 75 mg PO DAILY #90 caps 05/25/22 release 24 hr venlafaxine 37.5 mg 37.5 mg PO DAILY #90 caps 01/27/23 capsule,extended release 24 hr amlodipine 10 mg tablet 5 mg PO BID #90 tabs 02/02/23 lisinopril 20 mg tablet 10 mg PO DAILY #45 tabs 02/02/23 Results & Data (ED) Vital Signs Vital Signs - 24 hr 02/11/23 17:56 02/11/23 20:40 02/11/23 20:41 Temperature 36.3 C L Temperature Source Temporal Artery Scan Pulse Rate 89 Pulse Rate [Finger] 78 Respiratory Rate 16 18 Respiratory Effort / Characteristics Non-Labored Respiratory Depth Normal Blood Pressure 130/84 Blood Pressure [Right Arm] 127/78 Blood Pressure Mean 99 Blood Pressure Mean [Right Arm] 94 Pulse Oximetry 96 95 95 Oxygen Delivery Method Room Air Room Air Room Air Sepsis Recent Fever Within 48 Hours No Sepsis New/Unexplained Change in Mental Status No Sepsis Action Taken by Nursing No Action Required 02/11/23 20:49 02/11/23 21:00 02/11/23 22:10 Temperature Temperature Source Pulse Rate 78 79 78 Pulse Rate [Finger] Respiratory Rate 14 14 Respiratory Effort / Characteristics Respiratory Depth Blood Pressure 121/76 133/81 Blood Pressure [Right Arm] Blood Pressure Mean 91 98 Blood Pressure Mean [Right Arm] Pulse Oximetry 96 93 Oxygen Delivery Method Sepsis Recent Fever Within 48 Hours Sepsis New/Unexplained Change in Mental Status Sepsis Action Taken by Nursing 02/11/23 22:30 02/11/23 23:01 02/11/23 23:30 Temperature Temperature Source Pulse Rate 79 81 79 Pulse Rate [Finger] Respiratory Rate 20 20 18 Respiratory Effort / Characteristics Respiratory Depth Blood Pressure 123/78 125/78 118/76 Blood Pressure [Right Arm] Blood Pressure Mean 93 93 90 Blood Pressure Mean [Right Arm] Pulse Oximetry 94 95 93 Oxygen Delivery Method Sepsis Recent Fever Within 48 Hours Sepsis New/Unexplained Change in Mental Status Sepsis Action Taken by [facility] Medications Current Medication List: was personally reviewed by me Laboratory Data Attestation: I reviewed the patient's lab results. 02/11/23 18:01 02/11/23 18:01 Lab Results 02/11/23 02/11/23 02/11/23 Range/Units 18:01 18:01 21:08 WBC 8.28 (4.8-10.8) K/ul RBC 4.83 (4.20-5.40) M/uL Hgb 13.9 (12.0-16.0) g/dl Hct 42.5 (37.0-47.0) % MCV 88.0 (80.0-100.0) fL MCH 28.8 (25.0-34.0) pg MCHC 32.7 (32.0-36.0) g/dL RDW Std Deviation 42.3 (36.4-46.3) fL RDW Coeff of Svitlana 13.1 (11.5-14.5) % Plt Count 335 (130-400) K/uL MPV 9.2 L (9.4-12.4) fL Immature Gran % (Auto) 0.6 % Neut % (Auto) 57.8 % Lymph % (Auto) 31.2 % Chambers % (Auto) 7.1 % Eos % (Auto) 2.5 % Baso % (Auto) 0.8 % Neut # (Auto) 4.78 (1.40-6.50) K/uL Lymph # (Auto) 2.58 (1.2-3.4) K/uL Chambers # (Auto) 0.59 (0.11-0.59) K/uL Eos # (Auto) 0.21 (0-0.50) K/uL Baso # (Auto) 0.07 (0-0.2) K/uL Immature Gran # (Auto) 0.05 (0.01-0.20) K/uL Sodium 138 (136-145) mmol/L Potassium 3.9 (3.5-5.1) mmol/L Chloride 102 (98-107) mmol/L Carbon Dioxide 30 (21-32) mmol/L Anion Gap 6 (3-11) BUN 19 (6-23) mg/dl Creatinine 1.12 (0.6-1.2) mg/dl Est Cr Clr Drug Dosing 44.7 ml/min Est GFR ( Amer) 61.4 ml/min Est GFR (Non-Af Amer) 53.0 ml/min BUN/Creatinine Ratio 17.0 (10-20) Glucose 97 (70-99(Fasting)) mg/dl Calcium 10.2 H (8.5-10.1) mg/dl Total Bilirubin 0.3 (0.2-1.0) mg/dl AST 20 (13-39) U/L ALT 28 (7-52) U/L Alkaline Phosphatase 60 (34-104) U/L Troponin I High Sens 3.0 (0-14) pg/ml Total Protein 8.6 H (6.0-8.3) gm/dl Albumin 4.7 (3.4-5.0) gm/dl Globulin 3.9 (2.5-4.0) gm/dl Albumin/Globulin Ratio 1.2 (0.9-2) Lipase 47 Cancelled (11-82) U/L SARS-CoV-2, RNA, NAAT (NEGATIVE) 02/11/23 Range/Units 21:20 WBC (4.8-10.8) K/ul RBC (4.20-5.40) M/uL Hgb (12.0-16.0) g/dl Hct (37.0-47.0) % MCV (80.0-100.0) fL MCH (25.0-34.0) pg MCHC (32.0-36.0) g/dL RDW Std Deviation (36.4-46.3) fL RDW Coeff of Svitlana (11.5-14.5) % Plt Count (130-400) K/uL MPV (9.4-12.4) fL Immature Gran % (Auto) % Neut % (Auto) % Lymph % (Auto) % Chambers % (Auto) % Eos % (Auto) % Baso % (Auto) % Neut # (Auto) (1.40-6.50) K/uL Lymph # (Auto) (1.2-3.4) K/uL Chambers # (Auto) (0.11-0.59) K/uL Eos # (Auto) (0-0.50) K/uL Baso # (Auto) (0-0.2) K/uL Immature Gran # (Auto) (0.01-0.20) K/uL Sodium (136-145) mmol/L Potassium (3.5-5.1) mmol/L Chloride (98-107) mmol/L Carbon Dioxide (21-32) mmol/L Anion Gap (3-11) BUN (6-23) mg/dl Creatinine (0.6-1.2) mg/dl Est Cr Clr Drug Dosing ml/min Est GFR ( Amer) ml/min Est GFR (Non-Af Amer) ml/min BUN/Creatinine Ratio (10-20) Glucose (70-99(Fasting)) mg/dl Calcium (8.5-10.1) mg/dl Total Bilirubin (0.2-1.0) mg/dl AST (13-39) U/L ALT (7-52) U/L Alkaline Phosphatase (34-104) U/L Troponin I High Sens (0-14) pg/ml Total Protein (6.0-8.3) gm/dl Albumin (3.4-5.0) gm/dl Globulin (2.5-4.0) gm/dl Albumin/Globulin Ratio (0.9-2) Lipase (11-82) U/L SARS-CoV-2, RNA, NAAT NEGATIVE (NEGATIVE) Administered Medications Discontinued Medications Aspirin (Aspirin Chew 324 Mg) 324 mg PO NOW STA Stop: 02/11/23 21:09 Last Admin: 02/11/23 21:14 Dose: 324 mg Documented By: NIELS Ioversol (Optiray 320 500ml) 115 ml IV ONCE ONE Stop: 02/11/23 21:40 Last Admin: 02/11/23 21:39 Dose: 115 ml Documented By: CHLOE Morphine Sulfate (Morphine Sulfate 2 Mg/Ml Carp) 2 mg IV NOW STA Stop: 02/11/23 21:09 Last Admin: 02/11/23 21:14 Dose: 2 mg Documented By: NIELS Nitroglycerin (Nitroglycerin 2% Ointment 30gm Tube) 1 inch EXT NOW STA Stop: 02/11/23 21:09 Last Admin: 02/11/23 21:14 Dose: 1 inch Documented By: NIELS Ondansetron HCl (Ondansetron Inj 2 Mg/Ml 2 Ml Vial) 4 mg IV NOW STA Stop: 02/11/23 21:09 Last Admin: 02/11/23 21:14 Dose: 4 mg Documented By: NIELS Imaging Data Radiologist's Impression: Chest X-Ray 02/11/23 17:56 XR chest 1V portable HISTORY: Chest pain, nonspecific COMPARISON: Chest 12/11/2017. FINDINGS: The lungs are clear. Cardiac silhouette is normal in size. No pleural effusions. No pneumothorax. Prior cholecystectomy. Nodular density at the base of the left lower lobe is consistent with a nipple shadow. IMPRESSION: No acute process. ACT 112: Negative or not required by law. Electronically signed by: Russel Kaiser M.D. 02/11/2023 6:42 PM Chest CTA 02/11/23 21:08 Exam(s): CTA CHEST W/WO Contrast IV Amt: 115 ml optiray EXAM: CT Angiography Chest Without and With Intravenous Contrast CLINICAL HISTORY: Chest pain to back. TECHNIQUE: Axial computed tomographic angiography images of the chest without and with intravenous contrast. CTDI is 29.16 mGy and DLP is 397.84 mGy-cm. Automated exposure control was utilized for the study. A dose lowering technique was utilized adhering to the principles of ALARA. MIP reconstructed images were created and reviewed. CONTRAST: Patient received 115 ml optiray of IV contrast COMPARISON: No relevant prior studies available. FINDINGS: Pulmonary arteries: Unremarkable. No evidence for pulmonary embolism. Aorta: The thoracic aorta is normal in caliber without aneurysm or dissection. No intimal wall abnormality identified on precontrast imaging. Lungs: Minimal dependent curvilinear changes in the posterior aspect of the lower lobes. No focal airspace consolidation identified. There is a 4.5 mm juxtapleural noncalcified pulmonary nodule in the right lower lobe (series 7; image 51). Pleural space: Unremarkable. No significant effusion. No pneumothorax. Heart: Unremarkable. No cardiomegaly. No significant pericardial effusion. Bones/joints: The thoracic vertebral bodies demonstrate no evidence for compression fracture. No acute osseous abnormality or significant abnormal alignment. Soft tissues: Unremarkable. Lymph nodes: Unremarkable. No enlarged lymph nodes. IMPRESSION: 1. The thoracic aorta is normal in caliber without aneurysm or dissection. No intimal wall abnormality identified on precontrast imaging. 2. No evidence for pulmonary embolism. 3. Minimal dependent curvilinear atelectatic changes in the posterior aspect of the lower lobes. No focal airspace consolidation identified. No pleural effusion or pneumothorax. 4. There is a 4.5 mm juxtapleural noncalcified pulmonary nodule in the right lower lobe (series 7; image 51). Fleischner Society Guidelines in low-risk patients (minimal or absent history of smoking or other known risk factors), no follow-up is necessary. For high-risk patients (history of smoking or other known risk factors), an optional chest CT at 12 months could be performed. Electronically signed by: Alexis Wood MD 02/11/23 23:43 PM Discharge Plan Visit Data Chief Complaint: Cardiac Assessment Stated Complaint: CHEST PAIN,L SIDE GOING NUMB,PAIN IN BACK ED Provider: Adam Aguirre Discharge Problem: Precordial chest pain, Upper back pain Patient Disposition: Admitted As Inpatient Condition: Fair Forms Stand Alone Forms: [facility] Prescriptions Prescriptions: No Action pantoprazole 40 mg tablet,delayed release (DR/EC) 40 mg PO DAILY PRN (Reason: acid reflux) Qty: 30 2RF omega-3 fatty acids 1,000 mg capsule 2,000 mg PO DAILY cholecalciferol (vitamin D3) 1,000 unit capsule 1,000 units PO DAILY Qty: 30 0RF bupropion HCl 150 mg tablet sustained-release 12 hr 150 mg PO BID Qty: 180 3RF venlafaxine 75 mg capsule,extended release 24hr 75 mg PO DAILY Qty: 90 3RF Rx Instructions: TOTAL DOSE 112.5 MG--TAKES WITH 37.5 MG CAP. venlafaxine 37.5 mg capsule,extended release 24hr 37.5 mg PO DAILY Qty: 90 3RF Rx Instructions: TOTAL DOSE 112.5 MG--TAKES WITH 75 MG CAP. lisinopril 20 mg tablet 10 mg PO DAILY Qty: 45 3RF amlodipine 10 mg tablet 5 mg PO BID Qty: 90 3RF cyanocobalamin (vitamin B-12) 100 mcg tablet 100 mcg PO DAILY trazodone 50 mg tablet 25 mg PO HS mupirocin 2 % ointment 1 applic topical BID PRN (Reason: NEEDED) Rx Instructions: APPLY TO AFFECTED NOSTRIL TWICE DAILY FOR 2 WEEKS cyclobenzaprine 5 mg tablet 5 mg PO DAILY PRN (Reason: MUSCLE SPASMS) Rx Instructions: Patient only takes as needed Referrals Referrals: Lawrence Ly MD [Primary Care Provider] -
[2023-02-11] MEDS ORDERED: OPTIRAY 320 500ml IV ONE (21:39)
[2023-02-11] MEDS ORDERED: NSS + 20MEQ KCL 20 MEQ/1,000 ML BAG IV SCH (22:45)
--- NOTE | 2023-02-11 23:00 | History & Physical Report ---
Date of Service February 11, 2023 Assessment & Plan (1) Precordial chest pain: (2) Prediabetes: (3) Acid reflux: (4) Hyperlipidemia: (5) Insomnia: (6) Migraine headache: (7) Adjustment disorder: (8) Depression: (9) Hyperlipidemia: (10) Lumbar disc herniation: Plan Precordial chest pain radiating to back/strong family history of premature coronary artery disease- The patient will be admitted to telemetry for serial cardiac enzymes, serial EKG's, cardiac rhythm monitoring and a 2-D echocardiogram with Dopplers. Initial troponin normal at 3 Received aspirin 324 mg, morphine sulfate 2 mg, Nitropaste 1 inch to anterior chest wall from the ED And pes planus anterior chest wall every 6 hours Aspirin 81 mg daily Start metoprolol tartrate 12.5 mg p.o. twice daily EKG without acute findings Order a PT/INR/PTT, in the event that heparin needs to be started Continue amlodipine Hold lisinopril for now GERD- Continue pantoprazole Anxiety with depression/insomnia- Continue bupropion, venlafaxine and trazodone Vitamin B12 deficiency- Continue supplement Muscle spasms- Continue cyclobenzaprine as needed Vitamin D deficiency- Continue supplement History of Present Illness Chief Complaint: The patient reports that she was in her usual state of health until about 5 hours prior to arrival, when she was moving some things around on his shelf, and developed substernal chest pain radiating to her back between her shoulder blades Primary Care Provider: Lawrence Ly MD The patient is a 62-year-old female with past medical history significant for prediabetes, chronic rhinitis, complicated varicose veins, GERD, hyperlipidemia, insomnia, migraine headache, vulvitis, knee osteoarthritis, lumbar degenerative disc disease, depression, adjustment disorder with depressed mood, hyperlipidemia, hypertensive urgency, hypertension, noncardiac chest pain. The patient presents to the emergency department with symptoms as noted above. She has a very strong family history of multiple family members with stents and a bypass, and is concerned regarding possible cardiac chest pain. Patient did receive sublingual nitroglycerin, Nitropaste, Zofran and 2 mg of morphine IV from the ED without significant improvement in symptoms. Which she describes is more of a chest pressure. Imaging in the emergency department included CTA chest PE protocol, which was negative for PE and negative for aortic dissection. Allergies Allergy/AdvReac Type Severity Reaction Status Date / Time doxycycline Allergy Unknown UNKNOWN Verified 02/11/23 21:29 codeine AdvReac Intermediate STOMACH Verified 02/11/23 21:29 PAIN Rbvmrxj-YAV-PpM Reductase AdvReac Intermediate TIRED, Verified 02/11/23 21:29 Inhibitor WHOLE BODY [Loderlg-Cjd-Sbk Reductase ACHES Inhibitor] Sulfa (Sulfonamide AdvReac Intermediate GI UPSET Verified 02/11/23 21:29 Antibiotics) clarithromycin AdvReac Mild METAL Verified 02/11/23 21:29 TASTE IN MOUTH Home Medications Medication Instructions Recorded Confirmed Type cholecalciferol (vitamin D3) 25 1,000 units PO DAILY #30 caps 05/01/19 02/11/23 Rx mcg (1,000 unit) capsule omega-3 fatty acids 1,000 mg 2,000 mg PO DAILY 05/01/19 02/11/23 History capsule pantoprazole 40 mg tablet,delayed 40 mg PO DAILY PRN acid reflux #30 05/01/19 02/11/23 Rx release tabs cyanocobalamin (vitamin B-12) 100 100 mcg PO DAILY 08/16/19 02/11/23 History mcg tablet bupropion HCl 150 mg tablet,12 hr 150 mg PO BID #180 ea 03/02/22 02/11/23 Rx sustained-release venlafaxine 75 mg capsule,extended 75 mg PO DAILY #90 caps 05/25/22 02/11/23 Rx release 24 hr venlafaxine 37.5 mg 37.5 mg PO DAILY #90 caps 01/27/23 02/11/23 Rx capsule,extended release 24 hr amlodipine 10 mg tablet 5 mg PO BID #90 tabs 02/02/23 02/11/23 Rx lisinopril 20 mg tablet 10 mg PO DAILY #45 tabs 02/02/23 02/11/23 Rx cyclobenzaprine 5 mg tablet 5 mg PO DAILY PRN MUSCLE SPASMS 02/11/23 02/11/23 History mupirocin 2 % topical ointment 1 applic topical BID PRN NEEDED 02/11/23 02/11/23 History trazodone 50 mg tablet 25 mg PO HS 02/11/23 02/11/23 History Past Med/Surg History Medical History Acid reflux FH: cholecystectomy History of arterial aneurysm History of hyperglycemia Hyperlipidemia Insomnia Left-sided epistaxis Migraine headache Surgical History H/O colonoscopy History of back surgery History of cholecystectomy Family History Father Diabetes Hypertension Malignant neoplasm of pancreas Myocardial infarction Mother Hypertension Myocardial infarction Unknown Arteriosclerotic cardiovascular disease (ASCVD) Ovarian cancer Colon cancer Grandfather (Maternal) Myocardial infarction Grandfather (Paternal) Myocardial infarction Grandmother (Maternal) Myocardial infarction Grandmother (Paternal) Myocardial infarction Other Heart disease No family history of adverse response to anesthesia No family history of allergies No family history of bleeding disorder Stroke Denies family history of Prostate cancer Breast cancer Cancer Asthma Social History Smoking Status: Never smoker Second Hand Exposure: No; Hx Alcohol Use: Yes Alcohol type: wine Alcohol Intake Frequency Comment: Socially Hx Substance Use: No Preferred Language: Nigerien Communication Ability: Effective Visual Impairment: No Limitations Hearing Ability: Normal Business Liaison Manager Required: No Beliefs That Will Affect Care: None marital status: Current Living Situation: Spouse current occupational status: employed 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 Other Information That Helps Us Care for You: No Feels Safe at Home: Yes Safety Concerns: Feels Safe At This Time Dental Care, Regularly: Yes Physical Activity Frequency: 1-2 Times per Week Seatbelt Use: always Sunscreen Use: Yes Assistive Devices: Denture - Upper Review of Systems Review of Systems: The patient denies palpitations, cough, lower extremity swelling, sore throat, fevers, chills, sweats, weight change, fatigue, nausea, vomiting, diarrhea , constipation, abdominal pain, pelvic pain, blood in urine or stool, dysuria, urinary frequency or urgency, lightheadedness, dizziness, headache, memory loss, loss of consciousness, rash, abnormal bruising or bleeding, imbalance, focal or generalized weakness, numbness or tingling in arms or legs, generalized arthralgias or myalgias, neck pain, or night sweats. The review of systems is otherwise negative other than for that already noted above, and at least 10 systems have been reviewed. Physical Exam Physical Exam: The patient is awake, alert and oriented 3, well developed and well nourished, normocephalic and atraumatic, lying in bed and in no acute distress. HEENT--PERRL, EOMI, mucous membranes and oropharynx normal. Neck--supple. No JVD. No bruits. Thyroid normal, trachea midline, no adenopathy. Heart--normal S1 and S2. No murmurs, rubs or gallops. Lungs--clear bilaterally, no respiratory distress, no accessory muscle use. Abdomen--normal bowel sounds and soft. Nontender. Nondistended, no hernias or masses, no organomegaly. Extremities--no cyanosis or clubbing. No edema. Dermatologic--normal skin turgor, normal color, no abnormal lymph nodes, no rash. Neurologic--cranial nerves II through XII grossly intact. Rheumatologic--normal range of motion. Psychiatric--normal affect. Results & Data Results & Data Vital Signs (Past 12 Hours) Vital Signs Temp Pulse Pulse Resp BP BP Pulse Ox 02/11/23 22:30 79 20 123/78 94 02/11/23 22:10 78 14 133/81 93 02/11/23 21:00 79 14 121/76 96 02/11/23 20:49 78 02/11/23 20:41 95 02/11/23 20:40 78 18 127/78 95 02/11/23 17:56 36.3 C L 89 16 130/84 96 O2 Del Method 02/11/23 22:30 02/11/23 22:10 02/11/23 21:00 02/11/23 20:49 02/11/23 20:41 Room Air 02/11/23 20:40 Room Air 02/11/23 17:56 Room Air Laboratory Results Laboratory Results WBC 9.42 K/ul (4.8-10.8) 02/12/23 01:06 RBC 4.52 M/uL (4.20-5.40) 02/12/23 01:06 Hgb 13.0 g/dl (12.0-16.0) 02/12/23 01:06 Hct 39.7 % (37.0-47.0) 02/12/23 01:06 MCV 87.8 fL (80.0-100.0) 02/12/23 01:06 MCH 28.8 pg (25.0-34.0) 02/12/23 01:06 MCHC 32.7 g/dL (32.0-36.0) 02/12/23 01:06 RDW Std Deviation 42.0 fL (36.4-46.3) 02/12/23 01:06 RDW Coeff of Svitlana 13.1 % (11.5-14.5) 02/12/23 01:06 Plt Count 304 K/uL (130-400) 02/12/23 01:06 MPV 9.2 fL (9.4-12.4) L 02/12/23 01:06 Immature Gran % (Auto) 0.3 % 02/12/23 01:06 Neut % (Auto) 57.2 % 02/12/23 01:06 Lymph % (Auto) 32.5 % 02/12/23 01:06 Door % (Auto) 6.8 % 02/12/23 01:06 Eos % (Auto) 2.7 % 02/12/23 01:06 Baso % (Auto) 0.5 % 02/12/23 01:06 Neut # (Auto) 5.39 K/uL (1.40-6.50) 02/12/23 01:06 Lymph # (Auto) 3.06 K/uL (1.2-3.4) 02/12/23 01:06 Door # (Auto) 0.64 K/uL (0.11-0.59) H 02/12/23 01:06 Eos # (Auto) 0.25 K/uL (0-0.50) 02/12/23 01:06 Baso # (Auto) 0.05 K/uL (0-0.2) 02/12/23 01:06 Immature Gran # (Auto) 0.03 K/uL (0.01-0.20) 02/12/23 01:06 PT 10.5 Seconds (9.0-12.0) 02/11/23 23:38 INR 1.0 (0.9-1.1) 02/11/23 23:38 APTT 27.6 Seconds (21.0-31.0) 02/11/23 23:38 PTT Ratio 1.0 02/11/23 23:38 Sodium 138 mmol/L (136-145) 02/12/23 01:06 Potassium 3.8 mmol/L (3.5-5.1) 02/12/23 01:06 Chloride 105 mmol/L (98-107) 02/12/23 01:06 Carbon Dioxide 27 mmol/L (21-32) 02/12/23 01:06 Anion Gap 6 (3-11) 02/12/23 01:06 BUN 19 mg/dl (6-23) 02/12/23 01:06 Creatinine 1.14 mg/dl (0.6-1.2) 02/12/23 01:06 Est Cr Clr Drug Dosing 43.9 ml/min 02/12/23 01:06 Est GFR ( Amer) 60.1 ml/min 02/12/23 01:06 Est GFR (Non-Af Amer) 51.9 ml/min 02/12/23 01:06 BUN/Creatinine Ratio 16.7 (10-20) 02/12/23 01:06 Glucose 135 mg/dl (70-99(Fasting)) H 02/12/23 01:06 Calcium 9.3 mg/dl (8.5-10.1) 02/12/23 01:06 Phosphorus 3.7 mg/dl (2.5-4.9) 02/12/23 01:06 Magnesium 2.3 mg/dl (1.7-2.4) 02/12/23 01:06 Total Bilirubin 0.3 mg/dl (0.2-1.0) 02/11/23 18:01 AST 20 U/L (13-39) 02/11/23 18:01 ALT 28 U/L (7-52) 02/11/23 18:01 Alkaline Phosphatase 60 U/L (34-104) 02/11/23 18:01 Troponin I High Sens 2.9 pg/ml (0-14) 02/12/23 01:06 Total Protein 8.6 gm/dl (6.0-8.3) H 02/11/23 18:01 Albumin 4.2 gm/dl (3.4-5.0) 02/12/23 01:06 Globulin 3.9 gm/dl (2.5-4.0) 02/11/23 18:01 Albumin/Globulin Ratio 1.2 (0.9-2) 02/11/23 18:01 Lipase Cancelled 02/11/23 21:08 SARS-CoV-2, RNA, NAAT NEGATIVE (NEGATIVE) 02/11/23 21:20 Impressions Chest X-Ray 02/11/23 17:56 XR chest 1V portable HISTORY: Chest pain, nonspecific COMPARISON: Chest 12/11/2017. FINDINGS: The lungs are clear. Cardiac silhouette is normal in size. No pleural effusions. No pneumothorax. Prior cholecystectomy. Nodular density at the base of the left lower lobe is consistent with a nipple shadow. IMPRESSION: No acute process. ACT 112: Negative or not required by law. Electronically signed by: Russel Kaiser M.D. 02/11/2023 6:42 PM Chest CTA 02/11/23 21:08 Exam(s): CTA CHEST W/WO Contrast IV Amt: 115 ml optiray EXAM: CT Angiography Chest Without and With Intravenous Contrast CLINICAL HISTORY: Chest pain to back. TECHNIQUE: Axial computed tomographic angiography images of the chest without and with intravenous contrast. CTDI is 29.16 mGy and DLP is 397.84 mGy-cm. Automated exposure control was utilized for the study. A dose lowering technique was utilized adhering to the principles of ALARA. MIP reconstructed images were created and reviewed. CONTRAST: Patient received 115 ml optiray of IV contrast COMPARISON: No relevant prior studies available. FINDINGS: Pulmonary arteries: Unremarkable. No evidence for pulmonary embolism. Aorta: The thoracic aorta is normal in caliber without aneurysm or dissection. No intimal wall abnormality identified on precontrast imaging. Lungs: Minimal dependent curvilinear changes in the posterior aspect of the lower lobes. No focal airspace consolidation identified. There is a 4.5 mm juxtapleural noncalcified pulmonary nodule in the right lower lobe (series 7; image 51). Pleural space: Unremarkable. No significant effusion. No pneumothorax. Heart: Unremarkable. No cardiomegaly. No significant pericardial effusion. Bones/joints: The thoracic vertebral bodies demonstrate no evidence for compression fracture. No acute osseous abnormality or significant abnormal alignment. Soft tissues: Unremarkable. Lymph nodes: Unremarkable. No enlarged lymph nodes. IMPRESSION: 1. The thoracic aorta is normal in caliber without aneurysm or dissection. No intimal wall abnormality identified on precontrast imaging. 2. No evidence for pulmonary embolism. 3. Minimal dependent curvilinear atelectatic changes in the posterior aspect of the lower lobes. No focal airspace consolidation identified. No pleural effusion or pneumothorax. 4. There is a 4.5 mm juxtapleural noncalcified pulmonary nodule in the right lower lobe (series 7; image 51). Fleischner Society Guidelines in low-risk patients (minimal or absent history of smoking or other known risk factors), no follow-up is necessary. For high-risk patients (history of smoking or other known risk factors), an optional chest CT at 12 months could be performed. Electronically signed by: Alexis Wood MD 02/11/23 23:43 PM Code Status & VTE Plan Code Status Full code VTE Prophylaxis Plan VTE Prophylaxis will be ordered: Yes PG Care Time/CCT Total # of Minutes Spent Total Time Spent with Patient: Total time spent is greater than 50% in coordination of care (as documented) at patient's floor/unit and/or counseling patient: Coding Level of Care Code 27742 INT INP/OBS CARE 2/55MIN Diagnoses Precordial chest pain R07.2 Prediabetes R73.03 Acid reflux K21.9 Hyperlipidemia E78.5 Insomnia G47.00 Migraine headache G43.909 Adjustment disorder F43.20 Depression F32.9 Lumbar disc herniation M51.26
--- NOTE | 2023-02-11 23:44 | CT Scan Report ---
Exam(s): CTA CHEST W/WO Contrast IV Amt: 115 ml optiray EXAM: CT Angiography Chest Without and With Intravenous Contrast CLINICAL HISTORY: Chest pain to back. TECHNIQUE: Axial computed tomographic angiography images of the chest without and with intravenous contrast. CTDI is 29.16 mGy and DLP is 397.84 mGy-cm. Automated exposure control was utilized for the study. A dose lowering technique was utilized adhering to the principles of ALARA. MIP reconstructed images were created and reviewed. CONTRAST: Patient received 115 ml optiray of IV contrast COMPARISON: No relevant prior studies available. FINDINGS: Pulmonary arteries: Unremarkable. No evidence for pulmonary embolism. Aorta: The thoracic aorta is normal in caliber without aneurysm or dissection. No intimal wall abnormality identified on precontrast imaging. Lungs: Minimal dependent curvilinear changes in the posterior aspect of the lower lobes. No focal airspace consolidation identified. There is a 4.5 mm juxtapleural noncalcified pulmonary nodule in the right lower lobe (series 7; image 51). Pleural space: Unremarkable. No significant effusion. No pneumothorax. Heart: Unremarkable. No cardiomegaly. No significant pericardial effusion. Bones/joints: The thoracic vertebral bodies demonstrate no evidence for compression fracture. No acute osseous abnormality or significant abnormal alignment. Soft tissues: Unremarkable. Lymph nodes: Unremarkable. No enlarged lymph nodes. IMPRESSION: 1. The thoracic aorta is normal in caliber without aneurysm or dissection. No intimal wall abnormality identified on precontrast imaging. 2. No evidence for pulmonary embolism. 3. Minimal dependent curvilinear atelectatic changes in the posterior aspect of the lower lobes. No focal airspace consolidation identified. No pleural effusion or pneumothorax. 4. There is a 4.5 mm juxtapleural noncalcified pulmonary nodule in the right lower lobe (series 7; image 51). Fleischner Society Guidelines in low-risk patients (minimal or absent history of smoking or other known risk factors), no follow-up is necessary. For high-risk patients (history of smoking or other known risk factors), an optional chest CT at 12 months could be performed. Electronically signed by: Alexis Wood MD 02/11/23 23:43 PM
[2023-02-12] MEDS ORDERED: ONDANSETRON INJ 2 MG/ML 2 ML VIAL IV PRN (00:50)
[2023-02-12] MEDS ORDERED: CYCLOBENZAPRINE HCL 5 MG TAB PO PRN (00:50)
[2023-02-12 00:57] LABS: Partial Thromboplastin Time 27.6 Seconds (21.0-31.0); Prothrombin Time 10.5 Seconds (9.0-12.0)
[2023-02-12 01:28] LABS: Basophils # (auto) 0.05 K/uL (0-0.2); Basophils % (auto) 0.5 %; Eosinophils # (auto) 0.25 K/uL (0-0.50); Eosinophils % (auto) 2.7 %; Hematocrit (blood only) 39.7 % (37.0-47.0); Immature Granulocytes # (auto) 0.03 K/uL (0.01-0.20); Immature Granulocytes % (auto) 0.3 %; Lymphocytes # (auto) 3.06 K/uL (1.2-3.4); Lymphocytes % (auto) 32.5 %; Mean Corpuscular Hemoglobin 28.8 pg (25.0-34.0); Mean Corpuscular Hgb Conc 32.7 g/dL (32.0-36.0); Mean Corpuscular Volume 87.8 fL (80.0-100.0); Mean Platelet Volume 9.2 fL (9.4-12.4); Monocytes # (auto) 0.64 K/uL (0.11-0.59); Monocytes % (auto) 6.8 %; Neutrophils # (auto) 5.39 K/uL (1.40-6.50); Neutrophils % (auto) 57.2 %; Platelet Count 304 K/uL (130-400); RDW Coefficient of Variation 13.1 % (11.5-14.5); Red Blood Count 4.52 M/uL (4.20-5.40); White Blood Count 9.42 K/ul (4.8-10.8)
[2023-02-12] MEDS: NITROGLYCERIN 2% OINTMENT 30GM TUBE EXT SCH ×4 (01:35→17:10)
[2023-02-12 01:47] LABS: Albumin Level 4.2 gm/dl (3.4-5.0); BUN Creatinine Ratio 16.7 (10-20); Calcium 9.3 mg/dl (8.5-10.1); Creatinine Clr Calc Pharmacy 43.9 ml/min; Est GFR (African American) 60.1 ml/min; Est GFR (Non-African American) 51.9 ml/min; Magnesium 2.3 mg/dl (1.7-2.4); Phosphorus 3.7 mg/dl (2.5-4.9); Potassium 3.8 mmol/L (3.5-5.1)
[2023-02-12] MEDS: buPROPion SR 150 MG TABCR PO SCH ×3 (01:58→21:02)
[2023-02-12] MEDS: METOPROLOL TARTRATE 25 MG TAB PO SCH ×3 (02:43→21:02)
--- NOTE | 2023-02-12 07:34 | Electrocardiogram Report ---
Test Reason : Blood Pressure : / mmHG Vent. Rate : 085 BPM Atrial Rate : 085 BPM P-R Int : 188 ms QRS Dur : 088 ms QT Int : 372 ms P-R-T Axes : 027 018 056 degrees QTc Int : 442 ms Normal sinus rhythm When compared with ECG of 07-MAY-2016 18:18, No significant change was found Confirmed by Jimmy Stanley ([id number]) on 02/12/2023 7:33:55 AM Referred By: REFERRED SELF Confirmed By:Miguel Stanley
[2023-02-12] MEDS: CYANOCOBALAMIN (B-12) 100 MCG TABLET PO SCH (08:51)
[2023-02-12] MEDS: OMEGA-3 (PURIFIED FISH OIL) 1 GM CAP PO SCH (08:51)
[2023-02-12] MEDS: ASPIRIN 81 MG ECTAB PO SCH (08:51)
[2023-02-12] MEDS: CHOLECALCIFEROL 1,000 UNITS 25 MCG TAB PO SCH (08:51)
[2023-02-12] MEDS: PANTOprazole 40 MG TAB PO PRN (08:51)
[2023-02-12] MEDS: VENLAFAXINE HCL XR 75 MG CAPXR PO SCH (08:52)
[2023-02-12] MEDS: VENLAFAXINE HCL XR 37.5 MG CAPXR PO SCH (08:52)
[2023-02-12] MEDS: ACETAMINOPHEN 325 MG TAB PO PRN (08:58)
--- NOTE | 2023-02-12 14:36 | Hospitalist Progress Note ---
Date of Service February 12, 2023 Assessment & Plan (1) Precordial chest pain: Plan: Precordial chest pain radiating to back/strong family history of premature coronary artery disease- Serial cardiac enzymes are negative 2D echo completed, official report pending Monitor on telemetry On aspirin 81 mg, metoprolol 12.5 milligram started EKG without any acute changes Continue amlodipine Hold lisinopril for now since metoprolol has been started Patient does not want to go home without having a stress test. Plan on stress test on Tuesday (2) Prediabetes: Plan: Last A1c in 12/15/2022 was 6.2 (3) Acid reflux: Plan: Continue pantoprazole (4) Hyperlipidemia: (5) Insomnia: (6) Migraine headache: (7) Adjustment disorder: (8) Depression: Plan: Continue bupropion, venlafaxine and trazodone (9) Lumbar disc herniation: Admission and Anticipated Discharge Date Admission Date: February 11, 2023 Subjective Patient feels well. Denies chest pain or shortness of breath. She is quite anxious about her chest pain and wishes to rule out any cardiac etiology. Review of Systems Review of Systems: All systems reviewed & are unremarkable except as noted in Subjective Physical Exam Physical Exam: General: Awake, conversant Heart: S1, S2/regular rate and rhythm, no murmur rubs or gallops Lungs: Clear to auscultation bilaterally. Normal effort Abdomen: Soft/nontender/nondistended. No hepatosplenomegaly Extremities: No clubbing/cyanosis. No edema Behavior: Appropriate, cooperative Results & Data Results & Data Vital Signs (Past 12 Hours) Vital Signs Temp Pulse Pulse Resp BP Pulse Ox O2 Del Method 02/12/23 11:25 36.7 C 63 18 129/72 95 Room Air 02/12/23 07:25 36.4 C L 59 L 18 102/63 95 Room Air 02/12/23 07:20 55 L 02/12/23 06:26 57 L 18 92/55 L 96 Room Air Laboratory Results Abnormal lab results 02/11/23 02/11/23 02/12/23 Range/Units 18:01 18:01 01:06 MPV 9.2 L 9.2 L (9.4-12.4) fL Ada # (Auto) 0.64 H (0.11-0.59) K/uL Glucose (70-99(Fasting)) mg/dl Calcium 10.2 H (8.5-10.1) mg/dl Total Protein 8.6 H (6.0-8.3) gm/dl 02/12/23 Range/Units 01:06 MPV (9.4-12.4) fL Ada # (Auto) (0.11-0.59) K/uL Glucose 135 H (70-99(Fasting)) mg/dl Calcium (8.5-10.1) mg/dl Total Protein (6.0-8.3) gm/dl Diagnostic Findings Chest X-Ray 02/11/23 17:56 XR chest 1V portable HISTORY: Chest pain, nonspecific COMPARISON: Chest 12/11/2017. FINDINGS: The lungs are clear. Cardiac silhouette is normal in size. No pleural effusions. No pneumothorax. Prior cholecystectomy. Nodular density at the base of the left lower lobe is consistent with a nipple shadow. IMPRESSION: No acute process. ACT 112: Negative or not required by law. Electronically signed by: Russel Kaiser M.D. 02/11/2023 6:42 PM Chest CTA 02/11/23 21:08 Exam(s): CTA CHEST W/WO Contrast IV Amt: 115 ml optiray EXAM: CT Angiography Chest Without and With Intravenous Contrast CLINICAL HISTORY: Chest pain to back. TECHNIQUE: Axial computed tomographic angiography images of the chest without and with intravenous contrast. CTDI is 29.16 mGy and DLP is 397.84 mGy-cm. Automated exposure control was utilized for the study. A dose lowering technique was utilized adhering to the principles of ALARA. MIP reconstructed images were created and reviewed. CONTRAST: Patient received 115 ml optiray of IV contrast COMPARISON: No relevant prior studies available. FINDINGS: Pulmonary arteries: Unremarkable. No evidence for pulmonary embolism. Aorta: The thoracic aorta is normal in caliber without aneurysm or dissection. No intimal wall abnormality identified on precontrast imaging. Lungs: Minimal dependent curvilinear changes in the posterior aspect of the lower lobes. No focal airspace consolidation identified. There is a 4.5 mm juxtapleural noncalcified pulmonary nodule in the right lower lobe (series 7; image 51). Pleural space: Unremarkable. No significant effusion. No pneumothorax. Heart: Unremarkable. No cardiomegaly. No significant pericardial effusion. Bones/joints: The thoracic vertebral bodies demonstrate no evidence for compression fracture. No acute osseous abnormality or significant abnormal alignment. Soft tissues: Unremarkable. Lymph nodes: Unremarkable. No enlarged lymph nodes. IMPRESSION: 1. The thoracic aorta is normal in caliber without aneurysm or dissection. No intimal wall abnormality identified on precontrast imaging. 2. No evidence for pulmonary embolism. 3. Minimal dependent curvilinear atelectatic changes in the posterior aspect of the lower lobes. No focal airspace consolidation identified. No pleural effusion or pneumothorax. 4. There is a 4.5 mm juxtapleural noncalcified pulmonary nodule in the right lower lobe (series 7; image 51). Fleischner Society Guidelines in low-risk patients (minimal or absent history of smoking or other known risk factors), no follow-up is necessary. For high-risk patients (history of smoking or other known risk factors), an optional chest CT at 12 months could be performed. Electronically signed by: Alexis Wood MD 02/11/23 23:43 PM PG Care Time/CCT Total # of Minutes Spent Total Time Spent with Patient: Total time spent is greater than 50% in coordination of care (as documented) at patient's floor/unit and/or counseling patient: Coding Level of Care Code 38125 SUB INP/OBS CARE 2/35MIN Diagnoses Precordial chest pain R07.2 Prediabetes R73.03 Acid reflux K21.9 Hyperlipidemia E78.5 Insomnia G47.00 Migraine headache G43.909 Adjustment disorder F43.20 Depression F32.9 Lumbar disc herniation M51.26
--- NOTE | 2023-02-12 16:59 | XCELERA ---
[id number]
[2023-02-12] MEDS: traZODone HCL 50 MG TAB PO SCH (21:02)
[2023-02-13] MEDS: NITROGLYCERIN 2% OINTMENT 30GM TUBE EXT SCH ×4 (00:30→18:45)
[2023-02-13] MEDS: ACETAMINOPHEN 325 MG TAB PO PRN (02:19)
[2023-02-13] MEDS ORDERED: COUGH DROP (SUGAR FREE) LOZ 24 LOZ/1 BOX BUCCAL PRN (02:23)
[2023-02-13 07:16] LABS: Basophils # (auto) 0.06 K/uL (0-0.2); Basophils % (auto) 0.8 %; Eosinophils # (auto) 0.26 K/uL (0-0.50); Eosinophils % (auto) 3.5 %; Hematocrit (blood only) 37.6 % (37.0-47.0); Hemoglobin 12.2 g/dl (12.0-16.0); Immature Granulocytes # (auto) 0.03 K/uL (0.01-0.20); Immature Granulocytes % (auto) 0.4 %; Lymphocytes # (auto) 2.93 K/uL (1.2-3.4); Mean Corpuscular Hgb Conc 32.4 g/dL (32.0-36.0); Mean Corpuscular Volume 89.5 fL (80.0-100.0); Mean Platelet Volume 9.3 fL (9.4-12.4); Neutrophils # (auto) 3.64 K/uL (1.40-6.50); Neutrophils % (auto) 48.3 %; Platelet Count 275 K/uL (130-400); White Blood Count 7.52 K/ul (4.8-10.8)
--- NOTE | 2023-02-13 07:34 | Electrocardiogram Report ---
Test Reason : Blood Pressure : / mmHG Vent. Rate : 062 BPM Atrial Rate : 062 BPM P-R Int : 234 ms QRS Dur : 084 ms QT Int : 420 ms P-R-T Axes : 046 021 061 degrees QTc Int : 426 ms Sinus rhythm with 1st degree A-V block Low voltage QRS Borderline ECG When compared with ECG of 11-FEB-2023 18:10, [place] interval has increased Confirmed by Jimmy Stanley ([id number]) on 02/13/2023 7:34:43 AM Referred By: REFERRED SELF Confirmed By:Miguel Stanley
--- NOTE | 2023-02-13 07:46 | Electrocardiogram Report ---
Test Reason : Blood Pressure : / mmHG Vent. Rate : 059 BPM Atrial Rate : 059 BPM P-R Int : 224 ms QRS Dur : 086 ms QT Int : 432 ms P-R-T Axes : 038 028 052 degrees QTc Int : 427 ms Sinus bradycardia with 1st degree A-V block Otherwise normal ECG When compared with ECG of 12-FEB-2023 07:51, (unconfirmed) No significant change was found Confirmed by Jimmy Stanley ([id number]) on 02/13/2023 7:46:14 AM Referred By: REFERRED SELF Confirmed By:Miguel Stanley
[2023-02-13 07:57] LABS: Albumin Level 3.6 gm/dl (3.4-5.0); BUN Creatinine Ratio 17.4 (10-20); Calcium 8.9 mg/dl (8.5-10.1); Creatinine Clr Calc Pharmacy 45.9 ml/min; Est GFR (African American) 63.5 ml/min; Est GFR (Non-African American) 54.7 ml/min; Magnesium 2.1 mg/dl (1.7-2.4); Phosphorus 4.1 mg/dl (2.5-4.9); Potassium 4.2 mmol/L (3.5-5.1)
[2023-02-13] MEDS: PANTOprazole 40 MG TAB PO PRN (08:22)
[2023-02-13] MEDS: VENLAFAXINE HCL XR 75 MG CAPXR PO SCH (08:22)
[2023-02-13] MEDS: METOPROLOL TARTRATE 25 MG TAB PO SCH ×2 (08:22→20:11)
[2023-02-13] MEDS: VENLAFAXINE HCL XR 37.5 MG CAPXR PO SCH (08:22)
[2023-02-13] MEDS: OMEGA-3 (PURIFIED FISH OIL) 1 GM CAP PO SCH (08:23)
[2023-02-13] MEDS: CYANOCOBALAMIN (B-12) 100 MCG TABLET PO SCH (08:23)
[2023-02-13] MEDS: ASPIRIN 81 MG ECTAB PO SCH (08:23)
[2023-02-13] MEDS: CHOLECALCIFEROL 1,000 UNITS 25 MCG TAB PO SCH (08:23)
[2023-02-13] MEDS: buPROPion SR 150 MG TABCR PO SCH ×2 (08:23→20:10)
--- NOTE | 2023-02-13 12:58 | Hospitalist Progress Note ---
Date of Service February 13, 2023 Assessment & Plan (1) Precordial chest pain: Plan: Precordial chest pain radiating to back/strong family history of premature coronary artery disease- Serial cardiac enzymes are negative 2D echo completed, official report pending Monitor on telemetry On aspirin 81 mg, metoprolol 12.5 milligram started EKG without any acute changes Continue amlodipine Hold lisinopril for now since metoprolol has been started Patient does not want to go home without having a stress test. Ordered dobutamine stress echo tomorrow N.p.o. postmidnight tonight (2) Prediabetes: Plan: Last A1c in 12/15/2022 was 6.2 (3) Acid reflux: Plan: Continue pantoprazole (4) Hyperlipidemia: (5) Insomnia: (6) Migraine headache: (7) Adjustment disorder: (8) Depression: Plan: Continue bupropion, venlafaxine and trazodone (9) Lumbar disc herniation: Admission and Anticipated Discharge Date Admission Date: February 11, 2023 Anticipated date of discharge: 02/14/23 Subjective Patient feels well. Denies chest pain or shortness of breath Review of Systems Review of Systems: All systems reviewed & are unremarkable except as noted in Subjective Physical Exam Physical Exam: General: Awake, conversant Heart: S1, S2/regular rate and rhythm, no murmur rubs or gallops Lungs: Clear to auscultation bilaterally. Normal effort Abdomen: Soft/nontender/nondistended. No hepatosplenomegaly Extremities: No clubbing/cyanosis. No edema Behavior: Appropriate, cooperative Results & Data Results & Data Vital Signs (Past 12 Hours) Vital Signs Temp Pulse Pulse Resp BP Pulse Ox O2 Del Method 02/13/23 11:00 36.4 C L 61 17 152/85 H 91 Room Air 02/13/23 09:42 56 L 02/13/23 06:51 36.6 C 57 L 17 110/66 94 Room Air 02/13/23 06:12 60 100/54 L 02/13/23 02:20 36.6 C 62 18 118/69 94 Room Air Laboratory Results Abnormal lab results 02/13/23 02/13/23 Range/Units 06:45 06:45 MPV 9.3 L (9.4-12.4) fL [place] # (Auto) 0.60 H (0.11-0.59) K/uL Glucose 110 H (70-99(Fasting)) mg/dl PG Care Time/CCT Total # of Minutes Spent Total Time Spent with Patient: Total time spent is greater than 50% in coordination of care (as documented) at patient's floor/unit and/or counseling patient: Coding Level of Care Code 10704 SUB INP/OBS CARE 2/35MIN Diagnoses Precordial chest pain R07.2 Prediabetes R73.03 Acid reflux K21.9 Hyperlipidemia E78.5 Insomnia G47.00 Migraine headache G43.909 Adjustment disorder F43.20 Depression F32.9 Lumbar disc herniation M51.26
[2023-02-13] MEDS: traZODone HCL 50 MG TAB PO SCH (20:10)
[2023-02-14] MEDS: NITROGLYCERIN 2% OINTMENT 30GM TUBE EXT SCH ×3 (00:25→12:53)
[2023-02-14 07:15] LABS: Basophils # (auto) 0.06 K/uL (0-0.2); Basophils % (auto) 0.7 %; Eosinophils # (auto) 0.27 K/uL (0-0.50); Eosinophils % (auto) 3.2 %; Hematocrit (blood only) 39.1 % (37.0-47.0); Hemoglobin 12.8 g/dl (12.0-16.0); Immature Granulocytes # (auto) 0.06 K/uL (0.01-0.20); Immature Granulocytes % (auto) 0.7 %; Lymphocytes # (auto) 2.66 K/uL (1.2-3.4); Lymphocytes % (auto) 31.1 %; Mean Corpuscular Hemoglobin 28.8 pg (25.0-34.0); Mean Corpuscular Hgb Conc 32.7 g/dL (32.0-36.0); Mean Corpuscular Volume 87.9 fL (80.0-100.0); Mean Platelet Volume 9.4 fL (9.4-12.4); Neutrophils # (auto) 4.91 K/uL (1.40-6.50); Neutrophils % (auto) 57.3 %; Platelet Count 298 K/uL (130-400); RDW Coefficient of Variation 12.9 % (11.5-14.5); RDW Standard Deviation 41.1 fL (36.4-46.3); Red Blood Count 4.45 M/uL (4.20-5.40); White Blood Count 8.56 K/ul (4.8-10.8)
[2023-02-14 07:48] LABS: Albumin Level 3.9 gm/dl (3.4-5.0); BUN Creatinine Ratio 18.9 (10-20); Calcium 9.2 mg/dl (8.5-10.1); Creatinine Clr Calc Pharmacy 41.3 ml/min; Est GFR (African American) 55.4 ml/min; Est GFR (Non-African American) 47.8 ml/min; Phosphorus 4.1 mg/dl (2.5-4.9)
[2023-02-14] MEDS ORDERED: ATROPINE SULFATE 0.1 MG/ML 10ML SYR IV ONE (11:02)
[2023-02-14] MEDS ORDERED: DOBUTamine HCL 12.5 MG/ML 20 ML VIAL IV ONE (11:02)
[2023-02-14] MEDS ORDERED: METOPROLOL TARTRATE 1 MG/ML VIAL IV ONE (11:02)
[2023-02-14] MEDS ORDERED: NITROGLYCERIN SL 0.4 MG/TAB TAB ONE (11:03)
[2023-02-14] MEDS: METOPROLOL TARTRATE 25 MG TAB PO SCH (12:50)
[2023-02-14] MEDS: buPROPion SR 150 MG TABCR PO SCH (12:51)
[2023-02-14] MEDS: ASPIRIN 81 MG ECTAB PO SCH (12:51)
[2023-02-14] MEDS: VENLAFAXINE HCL XR 75 MG CAPXR PO SCH (12:52)
[2023-02-14] MEDS: CYANOCOBALAMIN (B-12) 100 MCG TABLET PO SCH (12:52)
[2023-02-14] MEDS: CHOLECALCIFEROL 1,000 UNITS 25 MCG TAB PO SCH (12:52)
[2023-02-14] MEDS: VENLAFAXINE HCL XR 37.5 MG CAPXR PO SCH (12:52)
[2023-02-14] MEDS: OMEGA-3 (PURIFIED FISH OIL) 1 GM CAP PO SCH (12:52)
--- NOTE | 2023-02-14 12:54 | XCELERA ---
[id number] \\[id number]}___[id number].pdf
[2023-02-14] MEDS: ACETAMINOPHEN 325 MG TAB PO PRN (12:55)
--- NOTE | 2023-02-14 15:04 | Discharge Summary ---
Date of Service February 14, 2023 Admission HPI Per Admitting Provider The patient is a 62-year-old female with past medical history significant for prediabetes, chronic rhinitis, complicated varicose veins, GERD, hyperlipidemia, insomnia, migraine headache, vulvitis, knee osteoarthritis, lumbar degenerative disc disease, depression, adjustment disorder with depressed mood, hyperlipidemia, hypertensive urgency, hypertension, noncardiac chest pain. The patient presents to the emergency department with symptoms as noted above. She has a very strong family history of multiple family members with stents and a bypass, and is concerned regarding possible cardiac chest pain. Patient did receive sublingual nitroglycerin, Nitropaste, Zofran and 2 mg of morphine IV from the ED without significant improvement in symptoms. Which she describes is more of a chest pressure. Imaging in the emergency department included CTA chest PE protocol, which was negative for PE and negative for aortic dissection. Admission Exam Per Admitting Provider The patient is awake, alert and oriented 3, well developed and well nourished, normocephalic and atraumatic, lying in bed and in no acute distress. HEENT--PERRL, EOMI, mucous membranes and oropharynx normal. Neck--supple. No JVD. No bruits. Thyroid normal, trachea midline, no adenopathy. Heart--normal S1 and S2. No murmurs, rubs or gallops. Lungs--clear bilaterally, no respiratory distress, no accessory muscle use. Abdomen--normal bowel sounds and soft. Nontender. Nondistended, no hernias or masses, no organomegaly. Extremities--no cyanosis or clubbing. No edema. Dermatologic--normal skin turgor, normal color, no abnormal lymph nodes, no rash. Neurologic--cranial nerves II through XII grossly intact. Rheumatologic--normal range of motion. Psychiatric--normal affect. Principal Diagnosis Atypical chest pain likely musculoskeletal in origin Discharge Exam General: Awake, conversant Heart: S1, S2/regular rate and rhythm, no murmur rubs or gallops Lungs: Clear to auscultation bilaterally. Normal effort Abdomen: Soft/nontender/nondistended. No hepatosplenomegaly Extremities: No clubbing/cyanosis. No edema Behavior: Appropriate, cooperative Discharge Data Allergies Allergy/AdvReac Type Severity Reaction Status Date / Time doxycycline Allergy Unknown UNKNOWN Verified 02/11/23 21:29 codeine AdvReac Intermediate STOMACH Verified 02/11/23 21:29 PAIN [id number] Reductase AdvReac Intermediate TIRED, Verified 02/11/23 21:29 Inhibitor WHOLE BODY [[id number]-Rbx Reductase ACHES Inhibitor] Sulfa (Sulfonamide AdvReac Intermediate GI UPSET Verified 02/11/23 21:29 Antibiotics) clarithromycin AdvReac Mild METAL Verified 02/11/23 21:29 TASTE IN MOUTH Consultations 02/11/23 21:27 ED Decision to Admit Stat Ordered Studies 02/11/23 21:08 CT angio chest dissec wo/w con Stat Hospital Course (1) Precordial chest pain: Precordial chest pain radiating to back/strong family history of premature coronary artery disease- Serial cardiac enzymes are negative 2D echo unremarkable Dobutamine stress echocardiogram was negative as well Cardiac etiology has been ruled out Her pain is most likely musculoskeletal in etiology Other possible differentials will need to be pursued outpatient (2) Prediabetes: Last A1c in 12/15/2022 was 6.2 (3) Acid reflux: Continue pantoprazole (4) Hyperlipidemia: (5) Insomnia: (6) Migraine headache: (7) Adjustment disorder: (8) Depression: Continue bupropion, venlafaxine and trazodone (9) Lumbar disc herniation: Total Time Total Time Spent Total Time Spent (In Minutes): 35 Discharge Plan Discharge Items Patient Disposition: Home - Self-Care Reason For Visit: UNSTABLE ANGINA Discharge Diagnosis: Atypical chest pain Condition on Discharge: Fair Activity: Resume your previous activity Non-emergency contact: Primary Care Provider Call non-emergency contact if: your symptoms worsen Follow-up/Referrals: Tiffanie Gotti PA-C [Physician [employer] Or Clip [employer]ener] - 02/16/23 11:00 am Diet: Heart Healthy Addtl Attending Provider Instructions: Advised to follow-up with PCP in 1 week Pending Studies at Discharge: No Stand-Alone Forms: My Codesion, Smoking Cessation Medications and DC Order Prescriptions: Continued pantoprazole 40 mg tablet,delayed release (DR/EC) 40 mg PO DAILY PRN (Reason: acid reflux) Qty: 30 2RF omega-3 fatty acids 1,000 mg capsule 2,000 mg PO DAILY cholecalciferol (vitamin D3) 1,000 unit capsule 1,000 units PO DAILY Qty: 30 0RF bupropion HCl 150 mg tablet sustained-release 12 hr 150 mg PO BID Qty: 180 3RF venlafaxine 75 mg capsule,extended release 24hr 75 mg PO DAILY Qty: 90 3RF Rx Instructions: TOTAL DOSE 112.5 MG--TAKES WITH 37.5 MG CAP. venlafaxine 37.5 mg capsule,extended release 24hr 37.5 mg PO DAILY Qty: 90 3RF Rx Instructions: TOTAL DOSE 112.5 MG--TAKES WITH 75 MG CAP. lisinopril 20 mg tablet 10 mg PO DAILY Qty: 45 3RF amlodipine 10 mg tablet 5 mg PO BID Qty: 90 3RF cyanocobalamin (vitamin B-12) 100 mcg tablet 100 mcg PO DAILY trazodone 50 mg tablet 25 mg PO HS mupirocin 2 % ointment 1 applic topical BID PRN (Reason: NEEDED) Rx Instructions: APPLY TO AFFECTED NOSTRIL TWICE DAILY FOR 2 WEEKS cyclobenzaprine 5 mg tablet 5 mg PO DAILY PRN (Reason: MUSCLE SPASMS) Rx Instructions: Patient only takes as needed Discharge Orders: Discharge Order (Routine); Ordered 02/14/23 Ordered By: Eddie Galloway Admission Data Admit Date/Time: 02/13/23 12:58 Attending Provider: Eddie Galloway Admit Provider: Taj Jones Primary Care Provider: Lawrence Ly Other Providers: Taj Jones Other Interventions: Discharge Summary Assessment (RN) Last Done: 02/14/23 15:21 Coding Level of Care Code 93965 INP/OBS DISCH >30 MIN Diagnoses Precordial chest pain R07.2 Prediabetes R73.03 Acid reflux K21.9 Hyperlipidemia E78.5 Insomnia G47.00 Migraine headache G43.909 Adjustment disorder F43.20 Depression F32.9 Lumbar disc herniation M51.26
--- NOTE | 2023-02-14 15:16 | Electrocardiogram Report ---
Test Reason : Blood Pressure : / mmHG Vent. Rate : 076 BPM Atrial Rate : 076 BPM P-R Int : 204 ms QRS Dur : 084 ms QT Int : 400 ms P-R-T Axes : 029 053 069 degrees QTc Int : 450 ms Normal sinus rhythm Normal ECG When compared with ECG of 13-FEB-2023 05:07, No significant change was found Confirmed by Jimmy Stanley ([id number]) on 02/14/2023 3:16:40 PM Referred By: REFERRED SELF Confirmed By:Miguel Stanley
== END 2023-02-14 16:35 | disposition home or self-care (01) | DRG 313 ==
LOC: ED 17:45 → 2S 17:45 → SUATTDRO 22:52 → 2S 02-12 00:36